=== PATIENT | male | born 1945 | race Caucasian/White ===

== ENCOUNTER 2017-04-17 16:07 | Emergency (ER) | payer OTHER, BC, MEDICARE ==
[2017-04-17 16:29] VITALS: BP 143/81; PULSE 76; RESP 18; TEMP 99
--- NOTE | 2017-04-17 17:20 | XR ---
EXAMINATION TYPE: XR shoulder complete RT, XR humerus RT DATE OF EXAM: 04/17/2017 CLINICAL HISTORY: Pain. Fall injury a couple weeks ago. TECHNIQUE: Three views of the right shoulder are obtained. 2 views of right humerus are acquired. COMPARISON: None. FINDINGS: There is no acute fracture/dislocation evident in the right shoulder. The glenohumeral richardson int spaces appear within normal limits. There is spurring and joint space loss at acromioclavicular joint. The visualized ribs are intact and unremarkable. Images of right humerus show no acute fracture or dislocation. Visualized portion of the elbow joint appears within normal limits. Overlying soft tissue is unremarkable. IMPRESSION: There is no acute fracture or dislocation in the right humerus or shoulder.
--- NOTE | 2017-04-17 17:32 | ED ---
Upper Extremity HPI - General Chief Complaint: Extremity Injury, Upper Stated Complaint: IHS-Fall Time Seen by Provider: 04/17/17 16:48 Source: patient, RN notes reviewed Mode of arrival: ambulatory Limitations: no limitations - History of Present Illness Initial Comments: This is a 71-year-old male who presents to the emergency department with chief complaint of right shoulder injury. Patient states that a couple weeks ago while at work he was squeegeeing the concrete floor. He states he believed the liquid on the floor was water and it turned out to be oil. He slipped, losing his balance and falling backwards. He states he tried to catch his fall by leaning forward and he fell straight down onto his right arm. Patient states he did not hurt his hand, wrist or elbow. He reports that since the incident he has had full range of motion of his shoulder but experiences pain with external rotation of the shoulder and pain is localized to right upper arm. Denies fever, chills, chest pain, shortness of breath, abdominal pain, nausea or vomiting, constipation or diarrhea, dysuria or hematuria, numbness or tingling, headache or vision changes. - Related Data Home Medications Medication Instructions Recorded Confirmed Atorvastatin [Lipitor] 20 mg PO HS 04/17/17 04/17/17 Allergies Allergy/AdvReac Type Severity Reaction Status Date / Time No Known Allergies Allergy Verified 04/17/17 16:52 Review of Systems ROS Statement: Those systems with pertinent positive or pertinent negative responses have been documented in the HPI. ROS Other: All systems not noted in ROS Statement are negative. Past Medical History Past Medical History: Cancer, Hyperlipidemia History of Any Multi-Drug Resistant Organisms: None Reported Past Surgical History: Hernia Repair Past Psychological History: No Psychological Hx Reported Smoking Status: Never smoker Past Alcohol Use History: Occasional Past Drug Use History: None Reported General Exam - General Exam Comments Initial Comments: General: Awake and alert, well-developed; in no apparent distress. HEENT: Head atraumatic, normocephalic. Pupils are equal, round and reactive to light. Extraocular movements intact. Oropharynx moist without erythema or exudate. Neck: Supple. Normal ROM. No tenderness. Cardiovascular: Regular rate and rhythm. No murmurs, rubs or gallops. Chest symmetrical. Respiratory: Lungs clear to auscultation bilaterally. No wheezes, rales or rhonchi. Normal respiratory effort with no use of accessory muscles. Musculoskeletal: Patient has full and active range of motion of right shoulder. Pain is elicited with external rotation of the shoulder, however the pain is felt in right upper arm and not the shoulder itself. Sensation is intact. Radial pulses are 2+ equal and palpable bilaterally. Skin: [place], warm and dry without rashes or lesions. Neurological: Alert and oriented x3. CN II-XII grossly intact. Speech is fluent and answers are appropriate. No focal neuro deficits. Psychiatric: Normal mood and affect. No overt signs of depression or anxiety noted. Limitations: no limitations Course Vital Signs 04/17/17 16:27 Temperature 99 F Pulse Rate 76 Respiratory 18 Rate Blood Pressure 143/81 O2 Sat by Pulse 98 Oximetry Medical Decision Making - Medical Decision Making This is a 71-year-old male who presents to the emergency room department with chief complaint of right shoulder injury. X-rays of right shoulder and humerus revealed no acute abnormalities. Patient likely suffering from muscle strain. He'll be discharged home. Patient is in agreement and voices understanding. All questions were answered. - Radiology Data Radiology results: report reviewed X-ray right shoulder and right humerus findings: There is no acute fracture/ dislocation evident in the right shoulder. The glenohumeral joint spaces appear within normal limits. There is spurring and joint space loss at acromioclavicular joint. Visualized ribs are intact and unremarkable. Images of right humerus show no acute fracture or dislocation. Visualized portion of the elbow joint appears within normal limits. Overlying soft tissue is unremarkable. Impression: There is no acute fracture or dislocation in the right humerus or shoulder. Disposition Clinical Impression: Muscle strain of left upper extremity Disposition: HOME SELF-CARE Condition: Good Instructions: Muscle Strain (ED) Additional Instructions: Please follow up with primary care provider within 1-2 days. Return to emergency department if symptoms should worsen or any concerns arise. Referrals: Abebe Choudhury MD [Primary Care Provider] - 1-2 days Time of Disposition: 17:38
== END 2017-04-17 17:50 | disposition home or self-care (01) ==
LOC: EC 16:07
DX: S46.911A Strain of unspecified muscle, fascia and tendon at shoulder and upper arm level, right arm, initial encounter (principal); E78.5 Hyperlipidemia, unspecified; Z79.899 Other long term (current) drug therapy; W01.0XXA Fall on same level from slipping, tripping and stumbling without subsequent striking against object, initial encounter; Y92.69 Other specified industrial and construction area as the place of occurrence of the external cause; Y99.0 Civilian activity done for income or pay
CPT/HCPCS: 99283

== ENCOUNTER → 2019-05-12 | Outpatient (CLI) | payer BC, MEDICARE ==
--- NOTE | 2019-05-13 11:25 | XR ---
EXAMINATION TYPE: XR chest 2V DATE OF EXAM: 05/12/2019 COMPARISON: None HISTORY: Shortness of breath TECHNIQUE: Frontal and lateral views of the chest are obtained. FINDINGS: Scattered senescent parenchymal changes noted. Hyperinflation compatible with COPD. No evidence for infiltrate. No evidence for atelectasis. Interstitial prominence appears chronic in n ature. Correlate clinically. Heart size is stable. Mediastinal structures are stable and grossly unremarkable. No evidence for hilar prominence. Degenerative changes dorsal spine. IMPRESSION: 1. No evidence for acute pulmonary disease.
== END | disposition home or self-care (01) ==
LOC: RADXRMAIN 17:19
PROVIDERS: ATTEND Internal Medicine
DX: R05 Cough (principal)
CPT/HCPCS: 71046

== ENCOUNTER 2020-05-02 10:32 | Inpatient (IN) | payer BC, MEDICARE ==
[2020-05-02] MEDS ORDERED: ACETAMINOPHEN TAB 500 MG TAB PO STA (10:51)
[2020-05-02] MEDS ORDERED: SODIUM CHLORIDE 0.9% 1,000 ML IV ONE (10:53)
--- NOTE | 2020-05-02 10:55 | ED ---
General Adult HPI - General Chief complaint: Shortness of Breath Stated complaint: YANET Time Seen by Provider: 05/02/20 10:43 Source: patient, RN notes reviewed Mode of arrival: EMS Limitations: no limitations - History of Present Illness Initial comments: This a 74-year-old male presents emergency Department with chief complaint of shortness of breath. Patient states he has not felt well over the last several days. Patient states he went to [facility] today to evaluated and found to be hypoxic. Patient had a pulse ox in the high 80s, low 90s. Patient states that he feels like he has slight congestion. He states he coughed there is no production. Denies any leg pain, leg swelling no prior cardiac or lung disease. Patient states he did not know he had a fever until today. Patient denies any known sick contacts. He has slight nasal congestion. Denies current dizziness, lightheaded feeling. - Related Data Home Medications Medication Instructions Recorded Confirmed No Known Home Medications 05/02/20 05/02/20 Allergies Allergy/AdvReac Type Severity Reaction Status Date / Time No Known Allergies Allergy Verified 05/02/20 11:35 Review of Systems ROS Statement: Those systems with pertinent positive or pertinent negative responses have been documented in the HPI. ROS Other: All systems not noted in ROS Statement are negative. Past Medical History Past Medical History: No Reported History History of Any Multi-Drug Resistant Organisms: None Reported Past Surgical History: Hernia Repair Past Psychological History: No Psychological Hx Reported Smoking Status: Never smoker Past Alcohol Use History: Occasional Past Drug Use History: None Reported General Exam Limitations: no limitations General appearance: alert, in no apparent distress Head exam: Present: atraumatic, normocephalic, normal inspection Eye exam: Present: normal appearance, PERRL, EOMI. Absent: scleral icterus, con junctival injection, periorbital swelling ENT exam: Present: normal exam, normal oropharynx, mucous membranes moist Neck exam: Present: normal inspection, full ROM. Absent: tenderness, meningismus, lymphadenopathy Respiratory exam: Present: respiratory distress (Mild), decreased breath sounds. Absent: normal lung sounds bilaterally, wheezes, rales, rhonchi, stridor Cardiovascular Exam: Present: regular rate, normal rhythm, normal heart sounds. Absent: systolic murmur, diastolic murmur, rubs, gallop, clicks GI/Abdominal exam: Present: soft, normal bowel sounds. Absent: distended, tenderness, guarding, rebound, rigid Extremities exam: Absent: pedal edema, calf tenderness Neurological exam: Present: alert, oriented X3, CN II-XII intact Course Vital Signs 05/02/20 05/02/20 05/02/20 10:45 11:53 12:55 Temperature 100.1 F H 99.2 F Pulse Rate 93 87 77 Respiratory 26 H 26 H 22 Rate Blood Pressure 153/92 153/92 135/88 O2 Sat by Pulse 92 L 98 96 Oximetry EKG Findings - EKG Comments: EKG Findings:: EKG performed at 11:13 normal sinus rhythm rate of 86 NH 140 QRS 86 QT/QTC 368/440 Medical Decision Making - Medical Decision Making X-ray shows mild infiltrates noted, patient was hypoxic upon arrival patient did have some improvement after oxygen. Patient d-dimer was elevated CT was performed no evidence of PE. Patient is discussed with admitting physician accepts admission patient was given dexamethasone, vitamin C, zinc, vitamin D - Lab Data Result diagrams: 05/02/20 11:32 05/02/20 11:32 Lab Results 05/02/20 05/02/20 05/02/20 Range/Units 11:32 11:32 11:32 WBC 7.9 (3.8-10.6) k/uL RBC 5.62 (4.30-5.90) m/uL Hgb 18.1 H (13.0-17.5) gm/dL Hct 52.0 (39.0-53.0) % MCV 92.6 (80.0-100.0) fL MCH 32.2 (25.0-35.0) pg MCHC 34.7 (31.0-37.0) g/dL RDW 12.3 (11.5-15.5) % Plt Count 185 (150-450) k/uL MPV 8.2 Neutrophils % 79 % Lymphocytes % 11 % Monocytes % 6 % Eosinophils % 0 % Basophils % 3 % Neutrophils # 6.2 (1.3-7.7) k/uL Lymphocytes # 0.9 L (1.0-4.8) k/uL Monocytes # 0.5 (0-1.0) k/uL Eosinophils # 0.0 (0-0.7) k/uL Basophils # 0.2 (0-0.2) k/uL PT 10.2 (9.0-12.0) sec INR 1.0 (<1.2) APTT 25.7 (22.0-30.0) sec D-Dimer 1.59 H (<0.60) mg/L FEU Sodium 136 L (137-145) mmol/L Potassium 4.3 (3.5-5.1) mmol/L Chloride 101 (98-107) mmol/L Carbon Dioxide 24 (22-30) mmol/L Anion Gap 11 mmol/L BUN 17 (9-20) mg/dL Creatinine 1.18 (0.66-1.25) mg/dL Est GFR (CKD-EPI)AfAm 70 (>60 ml/min/1.73 sqM) Est GFR (CKD-EPI)NonAf 61 (>60 ml/min/1.73 sqM) Glucose 116 H (74-99) mg/dL Plasma Lactic Acid Srinivas (0.7-2.0) mmol/L Calcium 9.1 (8.4-10.2) mg/dL Magnesium 2.3 (1.6-2.3) mg/dL Total Bilirubin 0.9 (0.2-1.3) mg/dL AST 59 (17-59) U/L ALT 29 (4-49) U/L Alkaline Phosphatase 79 (38-126) U/L Lactate Dehydrogenase 1301 H (313-618) U/L C-Reactive Protein 24.6 H (<10.0) mg/L Total Protein 8.1 (6.3-8.2) g/dL Albumin 4.3 (3.5-5.0) g/dL Coronavirus (PCR) (Not Detectd) 05/02/20 05/02/20 Range/Units 11:32 11:53 WBC (3.8-10.6) k/uL RBC (4.30-5.90) m/uL Hgb (13.0-17.5) gm/dL Hct (39.0-53.0) % MCV (80.0-100.0) fL MCH (25.0-35.0) pg MCHC (31.0-37.0) g/dL RDW (11.5-15.5) % Plt Count (150-450) k/uL MPV Neutrophils % % Lymphocytes % % Monocytes % % Eosinophils % % Basophils % % Neutrophils # (1.3-7.7) k/uL Lymphocytes # (1.0-4.8) k/uL Monocytes # (0-1.0) k/uL Eosinophils # (0-0.7) k/uL Basophils # (0-0.2) k/uL PT (9.0-12.0) sec INR (<1.2) APTT (22.0-30.0) sec D-Dimer (<0.60) mg/L FEU Sodium (137-145) mmol/L Potassium (3.5-5.1) mmol/L Chloride (98-107) mmol/L Carbon Dioxide (22-30) mmol/L Anion Gap mmol/L BUN (9-20) mg/dL Creatinine (0.66-1.25) mg/dL Est GFR (CKD-EPI)AfAm (>60 ml/min/1.73 sqM) Est GFR (CKD-EPI)NonAf (>60 ml/min/1.73 sqM) Glucose (74-99) mg/dL Plasma Lactic Acid Srinivas 1.3 (0.7-2.0) mmol/L Calcium (8.4-10.2) mg/dL Magnesium (1.6-2.3) mg/dL Total Bilirubin (0.2-1.3) mg/dL AST (17-59) U/L ALT (4-49) U/L Alkaline Phosphatase (38-126) U/L Lactate Dehydrogenase (313-618) U/L C-Reactive Protein (<10.0) mg/L Total Protein (6.3-8.2) g/dL Albumin (3.5-5.0) g/dL Coronavirus (PCR) Detected A (Not Detectd) Disposition Clinical Impression: COVID-19 Disposition: ADMITTED IP TO THIS HOSP Condition: Fair Referrals: Sheryl Pinedo MD [Primary Care Provider] - 1-2 days
[2020-05-02 11:46] LABS: Basophils # (A) 0.2 k/uL (0-0.2); Basophils % (A) 3 %; Eosinophils % (A) 0 %; HGB 18.1 gm/dL (13.0-17.5); Lymphocytes # (A) 0.9 k/uL (1.0-4.8); Lymphocytes % (A) 11 %; MCH 32.2 pg (25.0-35.0); MCHC 34.7 g/dL (31.0-37.0); MCV 92.6 fL (80.0-100.0); Mean Platelet Volume 8.2; Monocytes # (A) 0.5 k/uL (0-1.0); Monocytes % (A) 6 %; Neutrophils # (A) 6.2 k/uL (1.3-7.7); Neutrophils % (A) 79 %; Platelet Count 185 k/uL (150-450); RBC 5.62 m/uL (4.30-5.90); RDW 12.3 % (11.5-15.5); WBC 7.9 k/uL (3.8-10.6)
--- NOTE | 2020-05-02 11:53 | XR ---
EXAMINATION TYPE: XR chest 2V DATE OF EXAM: 05/02/2020 COMPARISON: 05/12/2019 HISTORY: 74-year-old male with cough TECHNIQUE: PA and lateral views FINDINGS: Heart normal size. Aortopulmonary vasculature within normal limits. Mild hyperinflation. Findings med ium interstitial opacities in the periphery of the lungs and at the lung bases, increased from prior. No pleural effusion. IMPRESSION: Possible background of COPD. Interstitial infiltrates/opacities have increased from 2019. Underlying interstitial fibrosis and possible superimposed atypical/COVID pneumonia are considerations.
[2020-05-02 11:54] LABS: Albumin 4.3 g/dL (3.5-5.0); Calcium 9.1 mg/dL (8.4-10.2); Magnesium 2.3 mg/dL (1.6-2.3); Potassium 4.3 mmol/L (3.5-5.1); Total Bilirubin 0.9 mg/dL (0.2-1.3); Total Protein 8.1 g/dL (6.3-8.2)
[2020-05-02 11:58] LABS: C Reactive Protein 24.6 mg/L (<10.0)
[2020-05-02 12:21] LABS: Prothrombin Time 10.2 sec (9.0-12.0)
[2020-05-02 12:22] LABS: Partial Thromboplastin Time 25.7 sec (22.0-30.0)
[2020-05-02 12:24] LABS: D-Dimer 1.59 mg/L FEU (<0.60)
[2020-05-02] MEDS ORDERED: dexAMETHasone 2 MG TAB PO STA (13:06)
--- NOTE | 2020-05-02 13:08 | CT ---
CT CHEST FOR PULMONARY EMBOLISM. EXAMINATION TYPE: CT chest angio for PE DATE OF EXAM: 05/02/2020 INDICATION: Shortness of breath. CT DLP: 450.6 mGycm, Automated exposure control for dose reduction was used. CONTRAST: Patient injected with 100 mL of Isovue 370. COMPARISON: None TECHNIQUE: CT of the chest is performed on a spiral scan at 2 mm thick sections. Study is performed with intravenous contrast timed for evaluation for pulmonary embolism. This will limit additional po rtions of the evaluation. 3-D MIP images reconstructed by the technologist are reviewed on the compu ter in the coronal and sagittal planes. FINDINGS: No persistent filling defects are evident to suggest an acute pulmonary embolism. No mediastinal or hilar adenopathy enlarged by CT criteria is evident. The ascending aorta diameter at the level of the main pulmonary artery is 2.4 cm. The main pulmonary artery diameter at the bifur cation is 3.1 cm. There is extensive emphysematous changes through the lungs greater on the right. Some scattered nonsp ecific infiltrate may be present within the lung bases. Findings overall appear suggestive for pulmon lauren fibrosis Limited CT section through the upper abdomen are unremarkable. IMPRESSIONS: 1. Extensive emphysematous changes. 2. Changes suggestive for pulmonary fibrosis. Mild infiltrate is not entirely excluded and atelectasi s or infectious etiologies could be considered. 3. No suspicious changes to suggest acute pulmonary embolism
[2020-05-02] MEDS ORDERED: ACETAMINOPHEN TAB 500 MG TAB PO PRN (13:36)
[2020-05-02] MEDS ORDERED: ALBUTEROL HFA INHALER INHALATION PRN (13:36)
--- NOTE | 2020-05-02 16:38 | P.HPIM ---
History of Present Illness H&P Date: 05/02/20 Patient is a 74-year-old male with no known PMH presented to the emergency room with complaints of subjective fevers, cough, and lethargy. Patient reports that his symptoms started Saturday of last week and gradually progressed. He attempted to make an appointment to see his primary care physician who was not available. The patient was referred to [facility] where he was found to be hypoxic in the high 80s to low 90s and was sent to the emergency room. At time of evaluation, the patient reports feeling somewhat better. He denied chest discomfort, overt shortness of breath, nausea, vomiting, abdominal pain, diarrhea, or dizziness. Also denied lower extremity swelling or pain. Patient underwent an extensive evaluation in the emergency room with vital signs upon presentation T-max of 100.1, respiratory rate 26, SpO2 92% on room air, and BP 153/92. Laboratory evaluation revealed CRP of 24.6, LDH 1301, d-dimer 1.59, and coronavirus testing positive. Chest CTA revealed extensive emphysematous changes suggestive of pulmonary fibrosis with infectious etiology not excluded with no changes to suggest PE. EKG revealed normal sinus rhythm at 86 bpm with no acute ST/T-wave changes noted as reviewed by me. Review of Systems Pertinent positives and negatives as discussed in HPI, a complete review of systems was performed and all other systems are negative. Past Medical History Past Medical History: No Reported History History of Any Multi-Drug Resistant Organisms: None Reported Past Surgical History: Hernia Repair Past Psychological History: No Psychological Hx Reported Smoking Status: Never smoker Past Alcohol Use History: Occasional Past Drug Use History: None Reported - Past Family History Father Additional Family Medical History / Comment(s): Father from diptheria treatment Mother Family Medical History: Cancer Additional Family Medical History / Comment(s): Pt cannot recall type of cancer. Medications and Allergies Home Medications Medication Instructions Recorded Confirmed Type No Known Home Medications 05/02/20 05/02/20 History Allergies Allergy/AdvReac Type Severity Reaction Status Date / Time No Known Allergies Allergy Verified 05/02/20 11:35 Physical Exam Vitals: Vital Signs Temp Pulse Resp BP Pulse Ox 05/02/20 12:55 99.2 F 77 22 135/88 96 05/02/20 11:53 87 26 H 153/92 98 05/02/20 10:45 100.1 F H 93 26 H 153/92 92 L Intake and Output 05/01/20 05/02/20 05/02/20 22:59 06:59 14:59 Other: Weight 99.79 kg General: non toxic, no distress, appears at stated age, obese Derm: no unusual rashes/lesions no unusual ecchymoses, warm, dry Head: atraumatic, normocephalic, symmetric Eyes: EOMI, no lid lag, anicteric sclera, pupils equal round reactive to light ENT: Nose and ears atraumatic, no thrush, no pharyngeal erythema Neck: No thyromegaly, no cervical lymphadenopathy, trachea midline, supple Mouth: no lip lesion, mucus membranes moist Cardiovascular: S1S2 reg, no murmur, positive posterior tibial pulse bilateral, no edema, capillary refill less than 2 seconds Lungs: Scattered rhonchi, no rales or wheezing, no accessory muscle use Abdominal: soft, nontender to palpation, no guarding, no appreciable o rganomegaly, normal bowel sounds Ext: no gross muscle atrophy, muscle strength 4 out of 5 in all 4 extremities grossly, no contractures, Neuro: CN II-XI grossly intact, light touch intact all 4 extremities, finger to nose within normal limits, Psych: Alert, oriented, appropriate affect Results CBC & Chem 7: 05/02/20 11:32 05/02/20 11:32 Labs: Abnormal Lab Results - Last 24 Hours (Table) 05/02/20 05/02/20 05/02/20 Range/Units 11:32 11:32 11:32 Hgb 18.1 H (13.0-17.5) gm/dL Lymphocytes # 0.9 L (1.0-4.8) k/uL D-Dimer 1.59 H (<0.60) mg/L FEU Sodium 136 L (137-145) mmol/L Glucose 116 H (74-99) mg/dL Lactate Dehydrogenase 1301 H (313-618) U/L C-Reactive Protein 24.6 H (<10.0) mg/L Coronavirus (PCR) (Not Detectd) 05/02/20 Range/Units 11:53 Hgb (13.0-17.5) gm/dL Lymphocytes # (1.0-4.8) k/uL D-Dimer (<0.60) mg/L FEU Sodium (137-145) mmol/L Glucose (74-99) mg/dL Lactate Dehydrogenase (313-618) U/L C-Reactive Protein (<10.0) mg/L Coronavirus (PCR) Detected A (Not Detectd) Assessment and Plan Plan: COVID pneumonitis with acute hypoxic respiratory failure -Obtain ferritin, CPK, troponin, and proBNP levels -Check inflammatory markers daily -Start dexamethasone, vitamin C, vitamin D, zinc, melatonin -Pulmonary consult for possible Remdesivir -Supplemental oxygen -Isolation precautions -Check procalcitonin DVT prophylaxis -Lovenox The patient is admitted with an anticipated greater than 2 midnight stay for evaluation of COVID pneumonia CODE STATUS: Full Code Discussed with: Patient Anticipated discharge date: 3-[address]: Home A total of 40 minutes was spent on the care of this complex patient more than 50% of the time was spent in counseling and care coordination.
[2020-05-02 19:52] LABS: Ferritin 1867.4 ng/mL (22.0-322.0)
[2020-05-03] MEDS: ZINC SULFATE 220 MG CAP PO SCH (08:00)
[2020-05-03] MEDS: CHOLECALCIFEROL 400 UNIT TAB PO SCH (08:00)
[2020-05-03] MEDS: dexAMETHasone 2 MG TAB PO SCH (08:01)
[2020-05-03 08:08] LABS: Basophils % (A) 0 %; Eosinophils % (A) 0 %; HCT 48.7 % (39.0-53.0); HGB 15.8 gm/dL (13.0-17.5); Lymphocytes # (A) 1.2 k/uL (1.0-4.8); Lymphocytes % (A) 11 %; MCH 30.6 pg (25.0-35.0); MCHC 32.4 g/dL (31.0-37.0); MCV 94.6 fL (80.0-100.0); Mean Platelet Volume 8.3; Monocytes # (A) 0.4 k/uL (0-1.0); Monocytes % (A) 4 %; Neutrophils # (A) 8.7 k/uL (1.3-7.7); Neutrophils % (A) 84 %; Platelet Count 215 k/uL (150-450); RBC 5.15 m/uL (4.30-5.90); WBC 10.3 k/uL (3.8-10.6)
[2020-05-03] MEDS ORDERED: ASCORBIC ACID 500 MG TAB PO SCH (09:00)
--- NOTE | 2020-05-03 11:09 | P.DS ---
Providers Date of admission: 05/02/20 13:35 Expected date of discharge: 05/03/20 Attending physician: Lynette Benson MD Consults: 05/02/20 16:38 Consult Physician Urgent Consulting Provider: Joby Hayden Consult Reason/Comments: COVID Do you want consulting provider notified?: Yes Primary care physician: Sheryl Pinedo MD Hospital Course: Discharge Diagnosis: COVID-19 Acute hypoxic respiratory failure Arthritis Hospital Course: Patient is a 74-year-old male with no known past medical history who presented initially to Dr. Mcgarry's office with complaints of chills for 5 days. [facility] including a rapid Covid which was negative. He was sent here due to hypoxia. On arrival to the ER here he was noted to have a fever of 100.1, respiratory rate of 26, and room air pulse ox 92%. He was noted to have an elevated d-dimer and subsequently underwent a CT of the chest which was negative for pulmonary embolism but demonstrated emphysematous changes and possible pulmonary fibrosis. He tested positive for Covid 19. He was noted to have a mildly elevated CRP and LDH. He was started on dexamethasone, zinc, and vitamin C/D. He was admitted for further monitoring. On the morning of 05/03 he was noted to have an O2 sat of 93% on 2 L nasal cannula, he had been satting 98% on 2 L nasal cannula the night prior. Requesting to be discharged. He was insistent that he needed to go home and we were not doing anything for him. He was subsequently discharged home at his request, and against the advice of the physician with 9 additional days of dexamethasone, zinc, vitamin C, vitamin D, and aspirin. He should follow-up with a [facility] visit with Dr. Pinedo in 3-5 days. He was given instructions to return to the emergency department should his breathing worsen. He will have a home O2 evaluation prior to discharge. Patient discharge in less than 2 midnights at patients request. Patient seen and examined at bedside. He is requesting to be discharged as I entered the room. He states he is fine and does not know why he is here. We had along discussion about his course of illness and his want to go home. I explained that I recommened that he stay for anohter 24 hours as he is percent of oxygen had decreased on his 2 L and that he was having some conversational dyspnea along with sternal retractions. He was again to go home that he wanted to go home and has stuff to do. Our conversation quickly deteriorated and the patient became very upset, hostile, and derogatory. He was told his request to be discharged home with be granted. But that I am very worried that he will come back to the hospital and do worse. Vital signs reviewed and stable. General: non toxic, no distress, appears at stated age Derm: warm, dry Head: atraumatic, normocephalic, symmetric Lungs: 3 word coversational dyspena, + sternal retractions. Neuro: CN II-XI grossly intact, Moving all 4 extremities Psych: Alert, oriented, agitated A total of 35 minutes of time were spent preparing this complex discharge summary . Patient Condition at Discharge: Fair Plan - Discharge Summary Discharge Rx Participant: No New Discharge Prescriptions: New Aspirin [Adult Low Dose Aspirin EC] 81 mg PO DAILY #14 tablet. dexAMETHasone [Hexadrol] 6 mg PO DAILY #27 tab Zinc Sulfate [Orazinc] 220 mg PO DAILY #14 cap Albuterol Inhaler [Ventolin Hfa Inhaler] 2 puff INHALATION RT-Q6H PRN #1 inhaler PRN Reason: Shortness Of Breath Or Wheezing Cholecalciferol [Vitamin D3] 400 unit PO DAILY #14 tab Famotidine [Pepcid] 40 mg PO HS #14 tab Discharge Medication List Albuterol Inhaler [Ventolin Hfa Inhaler] 2 puff INHALATION RT-Q6H PRN #1 inhaler 05/03/20 [Rx] Aspirin [Adult Low Dose Aspirin EC] 81 mg PO DAILY #14 tablet. 05/03/20 [Rx] Cholecalciferol [Vitamin D3] 400 unit PO DAILY #14 tab 05/03/20 [Rx] Famotidine [Pepcid] 40 mg PO HS #14 tab 05/03/20 [Rx] Zinc Sulfate [Orazinc] 220 mg PO DAILY #14 cap 05/03/20 [Rx] dexAMETHasone [Hexadrol] 6 mg PO DAILY #27 tab 05/03/20 [Rx] Follow up Appointment(s)/Referral(s): Sheryl Pinedo MD [Primary Care Provider] - 1-2 days Activity/Diet/Wound Care/Special Instructions: Activity: [] Diet: [] Wound Care: [] Special Instructions: Obtain a pulse ox and monitor oxygen levels if less than 90% you need to come to back to the hospital if your breathing worsens. You have been discharged at your request, the physician had wanted to keep you for further monitoring Discharge Disposition: HOME SELF-CARE
[2020-05-03] MEDS: ENOXAPARIN 40 MG/0.4 ML SYRINGE SQ SCH (11:12)
[2020-05-03 11:47] LABS: African American GFR (CKD) 86.2 (60.0-200.0); Anion Gap 11.2 mmol/L (4.00-12.00); C Reactive Protein 2.4 mg/dL (0.0-0.8); Calcium 8.7 mg/dL (8.7-10.3); Carbon Dioxide 21.8 mmol/L (21.6-31.8); Non-African American GFR(CKD) 74.3 (60.0-200.0); Potassium 4.2 mmol/L (3.5-5.5)
[2020-05-03] MEDS: FAMOTIDINE 20 MG TAB PO SCH (12:15)
--- NOTE | 2020-05-03 16:30 | P.CNPUL ---
History of Present Illness Consult date: 05/03/20 Requesting physician: Ella Rubio Reason for consult: dyspnea Chief complaint: Dyspnea, fatigue, cough History of present illness: 74-year-old white male patient of Dr. Choudhury, with history of COPD, previous history of smoking, in remission for last 47 years, osteoarthritis, hernia repair surgery, who presented to the emergency department on 05/02/2020 for evaluation of shortness of breath, fatigue, cough. Patient has not felt well for several days, he went to see Dr. Choudhury, however she could not be seen in the office, and she was sent over to the urgent care clinic formerly [facility] and he was found to be hypoxic with a pulse ox in the mid 80s, his lungs were slightly congested, he is coughing and his cough was nonproductive. He was tested for COVID at the [facility] and he stated that his test was negative there. In view of his hypoxia patient was directed to the emergency department for further evaluation and treatment, chest x-ray was completed showing mild infiltrates, his Coumadin 19 PCR was retested and he came back positive. He was lymphopenic on his blood work, with lymphocyte count of 0.9, white blood cell, 7.9, d-dimer was elevated to 1.59, CTA chest was completed showing extensive emphysematous changes, changes suggestive of pulmonary fibrosis, mild infiltrate not entirely excluded with atelectasis or infectious etiology consideration, no suspicious changes to suggest pulmonary embolism. Patient was febrile presentation with a temp of 100.1F, patient is satting 86% on room air, he is requiring supplemental oxygen currently on 2 L of oxygen with a pulse ox of 96%, he is short of breath with exertion, blood pressure has been stable, he was started on oral Decadron, Pepcid, vitamin C, zinc supplement, he states his breathing is improving, he still has a cough now and then, but overall he states he is improving, follow blood work was obtained today, showing d-dimer slightly improved and down to 1.14, electrolytes and renal profile were unremarkable, his inflammatory markers are trending down, LDH is down to 479 from 1301, and CRP is down to 2.4 from 24.6 on admission. ProCalcitonin level was negative at 0.06. Review of Systems All systems: negative Constitutional: Denies chills, Denies fever Eyes: denies blurred vision, denies pain Ears, nose, mouth and throat: Denies headache, Denies sore throat Cardiovascular: Denies chest pain, Denies shortness of breath Respiratory: Reports dyspnea, Denies cough Gastrointestinal: Denies abdominal pain, Denies diarrhea, Denies nausea, Denies vomiting Musculoskeletal: Denies myalgias Integumentary: Denies pruritus, Denies rash Neurological: Denies numbness, Denies weakness Psychiatric: Denies anxiety, Denies depression Endocrine: Denies fatigue, Denies weight change Past Medical History Past Medical History: No Reported History Additional Past Medical History / Comment(s): Arthritis bilateral hands History of Any Multi-Drug Resistant Organisms: None Reported Past Surgical History: Hernia Repair Additional Past Surgical History / Comment(s): L inguinal hernia repair. Past Anesthesia/Blood Transfusion Reactions: No Reported Reaction Past Psychological History: No Psychological Hx Reported Smoking Status: Never smoker Past Alcohol Use History: Occasional Past Drug Use History: None Reported - Past Family History Father Additional Family Medical History / Comment(s): Father from diptheria treatment Mother Family Medical History: Cancer Additional Family Medical History / Comment(s): Pt cannot recall type of cancer. Medications and Allergies Home Medications Medication Instructions Recorded Confirmed Type Albuterol Inhaler [Ventolin Hfa 2 puff INHALATION RT-Q6H PRN #1 05/03/20 Rx Inhaler] inhaler Aspirin [Adult Low Dose Aspirin EC] 81 mg PO DAILY #14 tablet. 05/03/20 Rx Cholecalciferol [Vitamin D3] 400 unit PO DAILY #14 tab 05/03/20 Rx Famotidine [Pepcid] 40 mg PO HS #14 tab 05/03/20 Rx Zinc Sulfate [Orazinc] 220 mg PO DAILY #14 cap 05/03/20 Rx dexAMETHasone [Hexadrol] 6 mg PO DAILY #27 tab 05/03/20 Rx Allergies Allergy/AdvReac Type Severity Reaction Status Date / Time No Known Allergies Allergy Verified 05/02/20 11:35 Physical Exam Vitals: Vital Signs Temp Pulse Pulse Pulse Pulse Pulse Resp 05/03/20 11:41 97.4 F L 88 84 86 79 84 18 05/03/20 11:00 05/03/20 07:44 98.2 F 84 17 05/03/20 02:00 97.9 F 81 20 05/02/20 20:00 98.0 F 79 18 BP Pulse Ox Pulse Ox Pulse Ox Pulse Ox Pulse Ox 05/03/20 11:41 126/78 96 93 L 94 L 94 L 86 L 05/03/20 11:00 96 05/03/20 07:44 137/88 93 L 05/03/20 02:00 115/73 92 L 05/02/20 20:00 138/75 96 Intake and Output 05/03/20 05/03/20 05/03/20 06:59 14:59 22:59 Intake Total 500 Balance 500 Intake: Oral 500 Other: # Voids 2 GENERAL EXAM: Alert, very pleasant 74-year-old white male on 2 L of oxygen the pulse ox 96% comfortable in no apparent distress. HEAD: Normocephalic/atraumatic. EYES: Normal reaction of pupils, equal size. Conjunctiva pink, sclera white. NOSE: Clear with pink turbinates. THROAT: No erythema or exudates. NECK: No masses, no JVD, no thyroid enlargement, no adenopathy. CHEST: No chest wall deformity. Symmetrical expansion. LUNGS: Equal air entry with scattered rhonchi CVS: Regular rate and rhythm, normal S1 and S2, no gallops, no murmurs, no rubs ABDOMEN: Soft, nontender. No hepatosplenomegaly, normal bowel sounds, no guarding or rigidity. EXTREMITIES: No clubbing, no edema, no cyanosis, 2+ pulses and upper and lower extremities. MUSCULOSKELETAL: Muscle strength and tone normal. SPINE: No scoliosis or deformity SKIN: No rashes CENTRAL NERVOUS SYSTEM: Alert and oriented -3. No focal deficits, tone is normal in all 4 extremities. PSYCHIATRIC: Alert and oriented -3. Appropriate affect. Intact judgment and insight. Results - Laboratory Findings CBC and BMP: 05/03/20 06:59 05/03/20 06:59 PT/INR, D-dimer PT 10.2 sec (9.0-12.0) 05/02/20 11:32 INR 1.0 (<1.2) 05/02/20 11:32 D-Dimer 1.14 mg/L FEU (<0.60) H 05/03/20 06:59 Abnormal lab findings: Abnormal Labs 05/02/20 05/02/20 05/02/20 11:32 11:32 11:32 Hgb 18.1 H Neutrophils # Lymphocytes # 0.9 L D-Dimer 1.59 H Sodium 136 L Glucose 116 H Ferritin 1867.4 H Lactate Dehydrogenase 1301 H C-Reactive Protein 24.6 H Coronavirus (PCR) 05/02/20 05/03/20 05/03/20 11:53 06:59 06:59 Hgb Neutrophils # 8.7 H Lymphocytes # D-Dimer 1.14 H Sodium Glucose Ferritin Lactate Dehydrogenase C-Reactive Protein Coronavirus (PCR) Detected A 05/03/20 06:59 Hgb Neutrophils # Lymphocytes # D-Dimer Sodium Glucose 130 H Ferritin Lactate Dehydrogenase 479 H C-Reactive Protein 2.4 H Coronavirus (PCR) - Diagnostic Findings Chest x-ray: report reviewed, image reviewed CT scan - chest: report reviewed, image reviewed Assessment and Plan Plan: Assessment: #1. Acute hypoxic respiratory failure related to acute coronary 19 related pn [place] #2. Acute exacerbation of chronic obstructive pulmonary disease #3. Increased inflammatory markers, and increased d-dimer without evidence of pulmonary embolism on the CTA chest related to acute COVID 19 related pneumonia #4. Extensive emphysematous changes throughout the lungs greater on the right, and findings overall appearing suggestive of pulmonary fibrosis #5. Former smoker, in remission for 47 years, does carry 23 years of smoking history Plan: Continue current medical treatment, continue oral Decadron, continue Lovenox at prophylactic dose, vital signs stable, patient is feeling better, although still requiring supplemental oxygen, continue with conservative treatment. Continue to monitor. If continues to improve in next 24 hours, may consider discharge home I performed a history & physical examination of the patient and discussed their management with my nurse practitioner, Celina Laboy. I reviewed the nurse practitioner's note and agree with the documented findings and plan of care. Lung sounds are positive for diminished breath sounds. The findings and the impression was discussed with the patient. I attest to the documentation by the nurse practitioner. Time with Patient: Greater than 30
[2020-05-03] MEDS ORDERED: MELATONIN 5 MG TABLET PO SCH (21:00)
[2020-05-04 06:47] LABS: Basophils # (A) 0.2 k/uL (0-0.2); Basophils % (A) 1 %; Eosinophils % (A) 0 %; HCT 49.2 % (39.0-53.0); HGB 16.3 gm/dL (13.0-17.5); Lymphocytes % (A) 7 %; MCH 32.3 pg (25.0-35.0); MCV 97.9 fL (80.0-100.0); Mean Platelet Volume 8.2; Monocytes # (A) 0.6 k/uL (0-1.0); Monocytes % (A) 4 %; Neutrophils # (A) 12.7 k/uL (1.3-7.7); Neutrophils % (A) 87 %; Platelet Count 228 k/uL (150-450); RBC 5.03 m/uL (4.30-5.90); RDW 12.6 % (11.5-15.5); WBC 14.5 k/uL (3.8-10.6)
[2020-05-04 08:18] VITALS: BP 143/84; RESP 18; TEMP 98.5
[2020-05-04] MEDS ORDERED: ASCORBIC ACID 500 MG TAB PO SCH (09:00)
[2020-05-04] MEDS: FAMOTIDINE 20 MG TAB PO SCH (09:32)
[2020-05-04] MEDS: ZINC SULFATE 220 MG CAP PO SCH (09:33)
[2020-05-04] MEDS: ENOXAPARIN 40 MG/0.4 ML SYRINGE SQ SCH (09:33)
[2020-05-04] MEDS: dexAMETHasone 2 MG TAB PO SCH (09:33)
[2020-05-04] MEDS: CHOLECALCIFEROL 400 UNIT TAB PO SCH (09:34)
[2020-05-04 10:38] VITALS: PULSE 2
[2020-05-04 10:56] LABS: African American GFR (CKD) 86.2 (60.0-200.0); C Reactive Protein 1.9 mg/dL (0.0-0.8); Calcium 8.8 mg/dL (8.7-10.3); Non-African American GFR(CKD) 74.3 (60.0-200.0)
--- NOTE | 2020-05-04 14:28 | P.PN ---
Subjective Progress Note Date: 05/04/20 Principal diagnosis: Acute hypoxic respiratory failure secondary to acute CoVID 19 pneumonia 74-year-old white male patient of Dr. Choudhury, with history of COPD, previous history of smoking, in remission for last 47 years, osteoarthritis, hernia repair surgery, who presented to the emergency department on 05/02/2020 for evaluation of shortness of breath, fatigue, cough. Patient has not felt well for several days, he went to see Dr. Chouhdury, however she could not be seen in the office, and she was sent over to the urgent care clinic [facility] and he was found to be hypoxic with a pulse ox in the mid 80s, his lungs were slightly congested, he is coughing and his cough was nonproductive. He was tested for COVID at the [facility] and he stated that his test was negative there. In view of his hypoxia patient was directed to the emergency department for further evaluation and treatment, chest x-ray was completed showing mild infiltrates, his Coumadin 19 PCR was retested and he came back positive. He was lymphopenic on his blood work, with lymphocyte count of 0.9, white blood cell, 7.9, d-dimer was elevated to 1.59, CTA chest was completed showing extensive emphysematous changes, changes suggestive of pulmonary fibrosis, mild infiltrate not entirely excluded with atelectasis or infectious etiology consideration, no suspicious changes to suggest pulmonary embolism. Patient was febrile presentation with a temp of 100.1F, patient is satting 86% on room air, he is requiring supplemental oxygen currently on 2 L of oxygen with a pulse ox of 96%, he is short of breath with exertion, blood pressure has been stable, he was started on oral Decadron, Pepcid, vitamin C, zinc supplement, he states his breathing is improving, he still has a cough now and then, but overall he states he is improving, follow blood work was obtained today, showing d-dimer slightly i mproved and down to 1.14, electrolytes and renal profile were unremarkable, his inflammatory markers are trending down, LDH is down to 479 from 1301, and CRP is down to 2.4 from 24.6 on admission. ProCalcitonin level was negative at 0.06. The patient is seen today 05/04/2020 in follow-up on the regular medical floor. He is awake and alert in no acute distress. Feeling back to his baseline. He is anxious to go home. He did receive Decadron and Lovenox. He remains on vitamin C, vitamin D, zinc, Pepcid, melatonin. Blood cultures reveal no growth. White count 14.5. Hemoglobin 16.3. D-dimer 0.88. Sodium 137. Potassium 4.0. Creatinine 1.0. LDH 505. C-reactive protein 1.9. Objective - Vital Signs Vital signs: Vital Signs Temp 98.5 F 05/04/20 08:00 Pulse 2 L 05/04/20 10:36 Resp 18 05/04/20 08:00 BP 143/84 05/04/20 08:00 Pulse Ox 89 L 05/04/20 10:36 Intake & Output 05/03/20 05/04/20 05/04/20 18:59 06:59 18:59 Intake Total 500 Balance 500 Intake: Oral 500 Other: Voiding Method Toilet Toilet # Voids 2 # Bowel Movements 1 - Exam GENERAL EXAM: Alert, very pleasant 74-year-old gentleman, on room air, comfortab le in no apparent distress. HEAD: Normocephalic. EYES: Normal reaction of pupils, equal size. NOSE: Clear with pink turbinates. THROAT: No erythema or exudates. NECK: No masses, no JVD. CHEST: No chest wall deformity. LUNGS: Equal air entry with no crackles, wheeze, rhonchi or dullness. CVS: S1 and S2 normal with no audible murmur, regular rhythm. ABDOMEN: No hepatosplenomegaly, normal bowel sounds, no guarding or rigidity. SPINE: No scoliosis or deformity SKIN: No rashes CENTRAL NERVOUS SYSTEM: No focal deficits, tone is normal in all 4 extremities. EXTREMITIES: There is no peripheral edema. No clubbing, no cyanosis. Peripheral pulses are intact. - Labs CBC & Chem 7: 05/04/20 06:17 05/04/20 06:17 Labs: Abnormal Lab Results - Last 24 Hours (Table) 05/04/20 05/04/20 05/04/20 Range/Units 06:17 06:17 06:17 WBC 14.5 H (3.8-10.6) k/uL Neutrophils # 12.7 H (1.3-7.7) k/uL D-Dimer 0.88 H (<0.60) mg/L FEU Carbon Dioxide 21.0 L (21.6-31.8) mmol/L BUN/Creatinine Ratio 21.00 H (12.00-20.00) Ratio Glucose 121 H (70-110) mg/dL Lactate Dehydrogenase 505 H (120-246) U/L C-Reactive Protein 1.9 H (0.0-0.8) mg/dL Microbiology - Last 24 Hours (Table) 05/02/20 11:32 Blood Culture - Preliminary Blood No Growth after 48 hours Assessment and Plan Assessment: 1 Acute hypoxic respiratory failure related to acute CoVID 19 related pneumonia, recovered 2 Acute exacerbation of chronic obstructive pulmonary disease 3 Increased inflammatory markers, and increased d-dimer without evidence of pulmonary embolism on the CTA chest related to acute COVID 19 related pneumonia 4 Extensive emphysematous changes throughout the lungs greater on the right, and findings overall appearing suggestive of pulmonary fibrosis 5 Former smoker, in remission for 47 years, does carry 23 years of smoking history Plan: The patient was seen and evaluated by Dr. Osorio He is cleared for discharge from the pulmonary standpoint Did not qualify for home oxygen Continue home isolation Follow up with his PCP in 1 week I, the cosigning physician, performed a history & physical examination of the patient. Lungs sounds are clear. Maintaining good O2 saturations in the 90s on room air. I discussed the assessment and plan of care with my nurse practitioner, Vinita Gao. I attest to the above note as dictated by her.
--- NOTE | 2020-05-04 18:16 | P.DS ---
Providers Date of admission: 05/02/20 13:35 Expected date of discharge: 05/04/20 Attending physician: Lynette Benson MD Consults: 05/02/20 16:38 Consult Physician Urgent Consulting Provider: Joby Hayden Consult Reason/Comments: COVID Do you want consulting provider notified?: Yes Primary care physician: Sheryl Pinedo MD Hospital Course: Discharge Diagnosis: COVID-19 Acute hypoxic respiratory failure Arthritis Emphysematous changes in lungs on CT Hospital Course: Patient is a 74-year-old male with no known past medical history who presented initially to Dr. Mcgarry's office with complaints of chills for 5 days. [facility] where he underwent testing including a rapid Covid which was negative. He was sent here due to hypoxia. On arrival to the ER here he was noted to have a fever of 100.1, respiratory rate of 26, and room air pulse ox 92%. He was noted to have an elevated d-dimer and subsequently underwent a CT of the chest which was negative for pulmonary embolism but demonstrated emphysematous changes and possible pulmonary fibrosis. He tested positive for Covid 19. He was noted to have a mildly elevated CRP and LDH. He was started on dexamethasone, zinc, and vitamin C/D. He was admitted for further monitoring. On the morning of 05/03 he was noted to have an O2 sat of 93% on 2 L nasal cannula, he had been satting 98% on 2 L nasal cannula the night prior. He was requiring home O2 on 05/03 but had significant improvement in his breathing by 05/04. He was determined stable for discharge on 05/04 but did not require home O2. He was subsequently discharged home to complete dexamethasone, zinc, vitamin C, vitamin D, and aspirin. He should follow-up with a Tele health visit with Dr. Pinedo in 3-5 days. Patient seen and examined at bedside. Feeling better today. Breathing is better. No nausea or vomiting. He is worried as he is not able to work at home like he used to be able to. He feels as though he needs to retire but is concerned about money. He had a with a lot of health problems and he subsequently sold their house and used their savings to half medical bills. She approximately 3 years ago with out her social security has required to continue working. He feels as though he is slowing down and were difficult. I've asked him to discuss this with his primary care physician Dr. Pinedo for alternatives. Vital signs reviewed and stable. General: non toxic, no distress, appears at stated age Derm: warm, dry Head: atraumatic, normocephalic, symmetric Eyes: EOMI, no lid lag, anicteric sclera Mouth: no lip lesion, mucus membranes moist Cardiovascular: S1S2 reg, no murmur, positive posterior tibial pulse bilateral, Lungs: Course bs bilateral, no rhonchi, no rales , no accessory muscle use, no conversational dyspnea Abdominal: soft, nontender to palpation, no guarding, no appreciable organomegaly Ext: no gross muscle atrophy, no edema, no contractures Neuro: CN II-XI grossly intact, no focal neuro deficits Psych: Alert, oriented, appropriate affect A total of 35 minutes of time were spent preparing this complex discharge summary . Patient Condition at Discharge: Fair Plan - Discharge Summary Discharge Rx Participant: No New Discharge Prescriptions: New Aspirin [Adult Low Dose Aspirin EC] 81 mg PO DAILY #14 tablet. dexAMETHasone [Hexadrol] 6 mg PO DAILY #27 tab Zinc Sulfate [Orazinc] 220 mg PO DAILY #14 cap Albuterol Inhaler [Ventolin Hfa Inhaler] 2 puff INHALATION RT-Q6H PRN #1 inhaler PRN Reason: Shortness Of Breath Or Wheezing Cholecalciferol [Vitamin D3] 400 unit PO DAILY #14 tab Famotidine [Pepcid] 40 mg PO HS #14 tab Discharge Medication List Albuterol Inhaler [Ventolin Hfa Inhaler] 2 puff INHALATION RT-Q6H PRN #1 inhaler 05/03/20 [Rx] Aspirin [Adult Low Dose Aspirin EC] 81 mg PO DAILY #14 tablet. 05/03/20 [Rx] Cholecalciferol [Vitamin D3] 400 unit PO DAILY #14 tab 05/03/20 [Rx] Famotidine [Pepcid] 40 mg PO HS #14 tab 05/03/20 [Rx] Zinc Sulfate [Orazinc] 220 mg PO DAILY #14 cap 05/03/20 [Rx] dexAMETHasone [Hexadrol] 6 mg PO DAILY #27 tab 05/03/20 [Rx] Follow up Appointment(s)/Referral(s): Sheryl Pinedo MD [Primary Care Provider] - 05/09/20 10:45 am (This is a virtural appointment not in office) Patient Instructions/Handouts: Famotidine (By mouth), Albuterol (By mouth), Aspirin (By mouth), Zinc Sulfate (By mouth), Dexamethasone (By mouth), Cholecalciferol (By mouth), Viral Pneumonia (DC) Activity/Diet/Wound Care/Special Instructions: Activity: as tolerated Diet: heart healthy Special Instructions: Obtain a pulse ox and monitor oxygen levels if less than 90% you need to come to back to the hospital if your breathing worsens. Discharge Disposition: HOME SELF-CARE
== END 2020-05-04 15:07 | disposition home or self-care (01) | DRG 177 ==
LOC: EC 10:32 → 6NMEDSUR 13:35
PROVIDERS: ADMIT Internal Medicine; ATTEND Internal Medicine
DX: U07.1 COVID-19 (principal); J12.89 Other viral pneumonia; J96.01 Acute respiratory failure with hypoxia; J44.1 Chronic obstructive pulmonary disease with (acute) exacerbation; D72.810 Lymphocytopenia; M19.041 Primary osteoarthritis, right hand; M19.042 Primary osteoarthritis, left hand; J84.10 Pulmonary fibrosis, unspecified; Z98.890 Other specified postprocedural states; Z79.899 Other long term (current) drug therapy; Z79.82 Long term (current) use of aspirin; Z80.9 Family history of malignant neoplasm, unspecified; Z87.891 Personal history of nicotine dependence
CPT/HCPCS: 36415; 71046; 71275; 80048; 80053; 82550; 82728; 83605; 83615; 83735; 83880; 84145; 84484; 85025; 85379; 85610; 85730; 86140; 87040; 87635; 93005; 94640; 99285

== ENCOUNTER 2020-05-10 08:49 | Inpatient (IN) | payer MEDICARE ==
[2020-05-10] MEDS ORDERED: ALBUTEROL HFA INHALER INHALATION STA (09:06)
[2020-05-10 09:32] LABS: Basophils # (A) 0.2 k/uL (0-0.2); Basophils % (A) 1 %; Eosinophils # (A) 0.1 k/uL (0-0.7); Eosinophils % (A) 0 %; Lymphocytes # (A) 1.5 k/uL (1.0-4.8); Lymphocytes % (A) 7 %; MCH 31.9 pg (25.0-35.0); MCHC 34.1 g/dL (31.0-37.0); MCV 93.4 fL (80.0-100.0); Mean Platelet Volume 7.3; Monocytes # (A) 0.9 k/uL (0-1.0); Monocytes % (A) 5 %; Neutrophils # (A) 17.1 k/uL (1.3-7.7); Neutrophils % (A) 86 %; RDW 12.6 % (11.5-15.5)
[2020-05-10 09:49] LABS: Albumin 4.2 g/dL (3.5-5.0); C Reactive Protein 17.6 mg/L (<10.0); Calcium 9.2 mg/dL (8.4-10.2); Magnesium 2.4 mg/dL (1.6-2.3); Potassium 4.4 mmol/L (3.5-5.1); Total Bilirubin 1.6 mg/dL (0.2-1.3); Total Protein 8.1 g/dL (6.3-8.2)
--- NOTE | 2020-05-10 09:49 | XR ---
EXAMINATION TYPE: XR chest 1V portable DATE OF EXAM: 05/10/2020 COMPARISON: Chest x-ray and CTA chest 8 days ago and older x-ray May 12, 2019 HISTORY: Shortness of breath, suspected covid 19 pneumonia TECHNIQUE: Single AP portable frontal upright view of the chest is obtained. FINDINGS: There is background chronic emphysematous and pulmonary fibrotic change bilaterally with p ersistent increased opacities greatest in the periphery and basilar region. No pleural effusion or p neumothorax seen bilaterally. The cardiac silhouette size remains within normal limits. The osseous structures are intact. IMPRESSION: Persistent bilateral multifocal acute infiltrates on background chronic emphysematous an d pulmonary fibrotic changes. No significant change from most recent studies. Findings consistent wit h covid 19 infection.
[2020-05-10 09:56] LABS: HCT 56.4 % (39.0-53.0); Platelet Count 474 k/uL (150-450)
[2020-05-10 09:57] LABS: HGB 19.2 gm/dL (13.0-17.5); RBC 6.04 m/uL (4.30-5.90)
--- NOTE | 2020-05-10 10:06 | ED ---
SOB HPI - General Chief Complaint: Shortness of Breath Stated Complaint: COVID+/SOB Time Seen by Provider: 05/10/20 08:50 Source: EMS Mode of arrival: EMS Limitations: no limitations - History of Present Illness Initial Comments: Patient is a 74-year-old male with past medical history of arthritis who presents emergency Department with worsening shortness of breath. Patient seen on May 02 and hospitalized to the second. At that time he was diagnosed Covid. States he went home on a cocktail of supplements and steroids. Patient has been taking them as directed. He is not given any oxygen. States that he has had worsening shortness of breath to where he called EMS this morning. EMS found the patient to be satting 88% home with tachypnea. He denies chest pain, fevers, nausea, vomiting or diarrhea. No other alleviating, precipitating or modifying factors - Related Data Previous Rx's Medication Instructions Recorded Albuterol Inhaler [Ventolin Hfa 2 puff INHALATION RT-Q6H PRN #1 05/03/20 Inhaler] inhaler Aspirin [Adult Low Dose Aspirin EC] 81 mg PO DAILY #14 tablet.dr 05/03/20 Cholecalciferol [Vitamin D3] 400 unit PO DAILY #14 tab 05/03/20 Famotidine [Pepcid] 40 mg PO HS #14 tab 05/03/20 Zinc Sulfate [Orazinc] 220 mg PO DAILY #14 cap 05/03/20 dexAMETHasone [Hexadrol] 6 mg PO DAILY #27 tab 05/03/20 Allergies Allergy/AdvReac Type Severity Reaction Status Date / Time No Known Allergies Allergy Verified 05/10/20 09:20 Review of Systems ROS Statement: Those systems with pertinent positive or pertinent negative responses have been documented in the HPI. ROS Other: All systems not noted in ROS Statement are negative. Past Medical History Past Medical History: No Reported History Additional Past Medical History / Comment(s): Arthritis bilateral hands History of Any Multi-Drug Resistant Organisms: None Reported Past Surgical History: Hernia Repair Additional Past Surgical History / Comment(s): L inguinal hernia repair. Past Anesthesia/Blood Transfusion Reactions: No Reported Reaction Past Psychological History: No Psychological Hx Reported Smoking Status: Never smoker Past Alcohol Use History: Occasional Past Drug Use History: None Reported - Past Family History Father Additional Family Medical History / Comment(s): Father from diptheria treatment Mother Family Medical History: Cancer Additional Family Medical History / Comment(s): Pt cannot recall type of cancer. General Exam Limitations: no limitations General appearance: alert, in no apparent distress Head exam: Present: atraumatic, normocephalic, normal inspection Eye exam: Present: normal appearance, PERRL, EOMI. Absent: scleral icterus, conjunctival injection, periorbital swelling ENT exam: Present: normal exam, mucous membranes moist Neck exam: Present: normal inspection. Absent: tenderness, meningismus, lymphadenopathy Respiratory exam: Present: respiratory distress, other (tachypnia, conversational dypnea). Absent: wheezes, rales, rhonchi, stridor Cardiovascular Exam: Present: regular rate, normal rhythm, normal heart sounds. Absent: systolic murmur, diastolic murmur, rubs, gallop, clicks GI/Abdominal exam: Present: soft, normal bowel sounds. Absent: distended, tenderness, guarding, rebound, rigid Extremities exam: Present: normal inspection, full ROM, normal capillary refill. Absent: tenderness, pedal edema, joint swelling, calf tenderness Back exam: Present: normal inspection Neurological exam: Present: alert, oriented X3, CN II-XII intact Psychiatric exam: Present: normal affect, normal mood Skin exam: Present: warm, dry, intact, normal color. Absent: rash Course Vital Signs 05/10/20 05/10/20 05/10/20 08:51 08:58 11:29 Temperature 97.9 F Pulse Rate 80 83 Pulse Rate [ Right] Respiratory 34 H 24 24 Rate Blood Pressure 117/76 110/75 Blood Pressure [Left Arm] O2 Sat by Pulse 90 L 94 L Oximetry 05/10/20 05/10/20 05/10/20 11:30 14:22 16:26 Temperature 96.9 F L Pulse Rate 86 77 Pulse Rate [ Right] Respiratory 18 18 Rate Blood Pressure 110/78 124/72 Blood Pressure [Left Arm] O2 Sat by Pulse 96 95 96 Oximetry 05/10/20 05/10/20 05/11/20 19:21 23:00 00:12 Temperature 97.1 F L Pulse Rate 93 Pulse Rate [ Right] Respiratory 18 24 Rate Blood Pressure 134/96 Blood Pressure [Left Arm] O2 Sat by Pulse 94 L 86 L Oximetry 05/11/20 05/11/20 05/11/20 00:36 00:42 01:50 Temperature 97.5 F L Pulse Rate Pulse Rate [ 78 Right] Respiratory 18 20 18 Rate Blood Pressure Blood Pressure 146/94 [Left Arm] O2 Sat by Pulse 91 L 93 L 93 L Oximetry 05/11/20 05/11/20 05/11/20 04:17 07:17 07:53 Temperature 97.9 F Pulse Rate Pulse Rate [ 73 Right] Respiratory 20 26 H 26 H Rate Blood Pressure Blood Pressure 141/83 [Left Arm] O2 Sat by Pulse 92 L 6 L Oximetry 05/11/20 05/11/20 05/11/20 09:06 12:28 15:45 Temperature Pulse Rate 72 64 Pulse Rate [ Right] Respiratory 24 20 Rate Blood Pressure 157/87 Blood Pressure [Left Arm] O2 Sat by Pulse 97 93 L 96 Oximetry 05/11/20 16:43 Temperature 97.9 F Pulse Rate 75 Pulse Rate [ Right] Respiratory 16 Rate Blood Pressure 125/99 Blood Pressure [Left Arm] O2 Sat by Pulse 95 Oximetry Medical Decision Making - Medical Decision Making Upon arrival the patient is placed in room 4. There are history and physical exam was performed. Patient is placed on 2 L of oxygen for his increased work of breathing. Laboratory studies were conducted. Chest x-ray was performed. Patient has a leukocytosis of 20,000. D-dimer 3.7. Hemoglobin 19.2. Lactic ac id 2.5. LDH and C-reactive protein elevated. Chest x-ray demonstrates persistent bilateral multifocal acute infiltrates. Because of the patient's increased worker breathing did recommend hospital admission for which patient did agree to. Discuss case with Dr. Hutchison who agreed to admit the patient. Requesting ABG. Pt agreed to this plan and he was admitted in stable condition - Lab Data Result diagrams: 05/11/20 05:53 05/11/20 05:53 Lab Results 05/10/20 05/10/20 05/10/20 Range/Units 09:17 09:17 09:17 WBC 20.0 H (3.8-10.6) k/uL RBC 6.04 H (4.30-5.90) m/uL Hgb 19.2 H* (13.0-17.5) gm/dL Hct 56.4 H (39.0-53.0) % MCV 93.4 (80.0-100.0) fL MCH 31.9 (25.0-35.0) pg MCHC 34.1 (31.0-37.0) g/dL RDW 12.6 (11.5-15.5) % Plt Count 474 H D (150-450) k/uL MPV 7.3 Neutrophils % 86 % Lymphocytes % 7 % Monocytes % 5 % Eosinophils % 0 % Basophils % 1 % Neutrophils # 17.1 H (1.3-7.7) k/uL Lymphocytes # 1.5 (1.0-4.8) k/uL Monocytes # 0.9 (0-1.0) k/uL Eosinophils # 0.1 (0-0.7) k/uL Basophils # 0.2 (0-0.2) k/uL PT (9.0-12.0) sec INR (<1.2) APTT (22.0-30.0) sec D-Dimer (<0.60) mg/L FEU Sodium 139 (137-145) mmol/L Potassium 4.4 (3.5-5.1) mmol/L Chloride 104 (98-107) mmol/L Carbon Dioxide 25 (22-30) mmol/L Anion Gap 10 mmol/L BUN 25 H (9-20) mg/dL Creatinine 1.20 (0.66-1.25) mg/dL Est GFR (CKD-EPI)AfAm 69 (>60 ml/min/1.73 sqM) Est GFR (CKD-EPI)NonAf 60 (>60 ml/min/1.73 sqM) Glucose 135 H (74-99) mg/dL Lactic Ac Sepsis Rflx Plasma Lactic Acid Srinivsa 2.5 H* (0.7-2.0) mmol/L Calcium 9.2 (8.4-10.2) mg/dL Magnesium 2.4 H (1.6-2.3) mg/dL Ferritin 2115.3 H (22.0-322.0) ng/mL Total Bilirubin 1.6 H (0.2-1.3) mg/dL AST 50 (17-59) U/L ALT 72 H (4-49) U/L Alkaline Phosphatase 115 (38-126) U/L Lactate Dehydrogenase 1689 H (313-618) U/L C-Reactive Protein 17.6 H (<10.0) mg/L Total Protein 8.1 (6.3-8.2) g/dL Albumin 4.2 (3.5-5.0) g/dL Procalcitonin (0.02-0.09) ng/mL 05/10/20 05/10/20 05/10/20 Range/Units 09:17 09:48 10:24 WBC (3.8-10.6) k/uL RBC (4.30-5.90) m/uL Hgb (13.0-17.5) gm/dL Hct (39.0-53.0) % MCV (80.0-100.0) fL MCH (25.0-35.0) pg MCHC (31.0-37.0) g/dL RDW (11.5-15.5) % Plt Count (150-450) k/uL MPV Neutrophils % % Lymphocytes % % Monocytes % % Eosinophils % % Basophils % % Neutrophils # (1.3-7.7) k/uL Lymphocytes # (1.0-4.8) k/uL Monocytes # (0-1.0) k/uL Eosinophils # (0-0.7) k/uL Basophils # (0-0.2) k/uL PT 10.0 (9.0-12.0) sec INR 1.0 (<1.2) APTT 22.2 (22.0-30.0) sec D-Dimer 3.70 H (<0.60) mg/L FEU Sodium (137-145) mmol/L Potassium (3.5-5.1) mmol/L Chloride (98-107) mmol/L Carbon Dioxide (22-30) mmol/L Anion Gap mmol/L BUN (9-20) mg/dL Creatinine (0.66-1.25) mg/dL Est GFR (CKD-EPI)AfAm (>60 ml/min/1.73 sqM) Est GFR (CKD-EPI)NonAf (>60 ml/min/1.73 sqM) Glucose (74-99) mg/dL Lactic Ac Sepsis Rflx Y Plasma Lactic Acid Srinivas (0.7-2.0) mmol/L Calcium (8.4-10.2) mg/dL Magnesium (1.6-2.3) mg/dL Ferritin (22.0-322.0) ng/mL Total Bilirubin (0.2-1.3) mg/dL AST (17-59) U/L ALT (4-49) U/L Alkaline Phosphatase (38-126) U/L Lactate Dehydrogenase (313-618) U/L C-Reactive Protein (<10.0) mg/L Total Protein (6.3-8.2) g/dL Albumin (3.5-5.0) g/dL Procalcitonin 0.05 (0.02-0.09) ng/mL - EKG Data EKG Comments: EKG demonstrates a sinus rhythm with ventricular rate of 89. [place] interval 128. QRS 82. QTC of 459. Q-wave lead 3. No acute ST segment elevations or depressions Disposition Clinical Impression: COVID-19, Respiratory failure with hypoxia, Leukocytosis Disposition: ADMITTED IP TO THIS [facility] Condition: Good Is patient prescribed a controlled substance at d/c from ED?: No Decision to Admit Reason: Admit from EC Decision Date: 05/10/20 Decision Time: 11:11
[2020-05-10] MEDS ORDERED: ACETAMINOPHEN TAB 325 MG TAB PO PRN (11:18)
[2020-05-10] MEDS ORDERED: NALOXONE 0.4 MG/ML 1 ML VIAL IV PRN (11:18)
[2020-05-10] MEDS ORDERED: ENOXAPARIN 40 MG/0.4 ML SYRINGE SQ STA (11:20)
[2020-05-10] MEDS ORDERED: dexAMETHasone 2 MG TAB PO STA (11:21)
[2020-05-10] MEDS ORDERED: cefTRIAXone IN SWFI 1,000 MG/10 ML SYRINGE IVP STA (11:24)
[2020-05-10 11:51] LABS: D-Dimer 3.7 mg/L FEU (<0.60); Partial Thromboplastin Time 22.2 sec (22.0-30.0)
[2020-05-10 11:58] LABS: ABG Base Excess -4.7 mmol/L; ABG HCO3 19 mmol/L (21-25); ABG Oxygen Saturation 97.6 % (94-97); ABG PCO2 26 mmHg (35-45); ABG PH 7.47 (7.35-7.45); ABG PO2 86 mmHg (83-108); ABG TCO2 20 mmol/L (19-24); Allen Test Performed? Yes
[2020-05-10] MEDS: SODIUM CHLORIDE 0.9% 1,000 ML IV SCH ×2 (12:40→22:02)
--- NOTE | 2020-05-10 13:59 | P.HPIM ---
History of Present Illness H&P Date: 05/10/20 Chief Complaint: Dyspnea 74 year old man with history of COPD with pulmonary fibrosis, recent diagnosis of COVID, hx of nicotine use in remission presented with increasing dyspnea. Patient was recently admitted and discharged here from 05/02-05/03, where his presentation of illness was 5 days of chills, weakness, and cough starting from 04/27. He initially required oxygen, but then quickly improved with dexamethasone/vitamin c/D/Zinc/Famotidine, and was discharged home on room air to self-quarantine. However, in the last 1-2 days, patient describes gradually worsening dyspnea, especially on exertion. His other symptoms include cough, and MELISSA; but he denies anosmia, headache, fevers, chills, nausea, vomiting, abdominal pain, chest pain, palps, orthopnea, dysuria/dyschezia, melena/hematochezia. Patient was requiring 4L NC on admission with saturations of 96%; CBC is remarkable for WBC of 20, Hgb of 19. LDH, CRP are elevated. CXR demonstrates persistent multifocal acute infiltrates. Review of Systems All Systems reviewed and pertinent positives and negatives noted in HPI, all other symptoms are negative Past Medical History Past Medical History: No Reported History Additional Past Medical History / Comment(s): Arthritis bilateral hands History of Any Multi-Drug Resistant Organisms: None Reported Past Surgical History: Hernia Repair Additional Past Surgical History / Comment(s): L inguinal hernia repair. Past Anesthesia/Blood Transfusion Reactions: No Reported Reaction Past Psychological History: No Psychological Hx Reported Smoking Status: Never smoker Past Alcohol Use History: Occasional Past Drug Use History: None Reported - Past Family History Father Additional Family Medical History / Comment(s): Father from diptheria treatment Mother Family Medical History: Cancer Additional Family Medical History / Comment(s): Pt cannot recall type of cancer. Medications and Allergies Home Medications Medication Instructions Recorded Confirmed Type Albuterol Inhaler [Ventolin Hfa 2 puff INHALATION RT-Q6H PRN #1 05/03/20 05/10/20 Rx Inhaler] inhaler Aspirin [Adult Low Dose Aspirin EC] 81 mg PO DAILY #14 tablet. 05/03/20 05/10/20 Rx Cholecalciferol [Vitamin D3] 400 unit PO DAILY #14 tab 05/03/20 05/10/20 Rx Famotidine [Pepcid] 40 mg PO HS #14 tab 05/03/20 05/10/20 Rx Zinc Sulfate [Orazinc] 220 mg PO DAILY #14 cap 05/03/20 05/10/20 Rx dexAMETHasone [Hexadrol] 6 mg PO DAILY #27 tab 05/03/20 05/10/20 Rx Allergies Allergy/AdvReac Type Severity Reaction Status Date / Time No Known Allergies Allergy Verified 05/10/20 09:20 Physical Exam Osteopathic Statement: *. No significant issues noted on an osteopathic structural exam other than those noted in the History and Physical/Consult. Vitals: Vital Signs Temp Pulse Resp BP Pulse Ox 05/10/20 11:30 96.9 F L 86 18 110/78 96 05/10/20 11:29 83 24 110/75 94 L 05/10/20 08:58 24 05/10/20 08:51 97.9 F 80 34 H 117/76 90 L Intake and Output 05/09/20 05/10/20 05/10/20 22:59 06:59 14:59 Other: Weight 99.79 kg Gen: awake, alert HEENT: normocephalic, atraumatic, good hearing acuity, moist mucous membranes Resp: good air exchange, no accessory muscle use, tachypneic CVS: good distal perfusion x 4, RRR, no murmurs, clicks, gallops GI: soft, NTTP, ND : no SPT, no CVAT, tate catheter not present MSK: no pitting edema, no clubbing Neuro: non-focal, no sensory deficits, appropriate tone Psych: cooperative, euthymic mood Results CBC & Chem 7: 05/10/20 09:17 05/10/20 09:17 Labs: Abnormal Lab Results - Last 24 Hours (Table) 05/10/20 05/10/20 05/10/20 Range/Units 09:17 09:17 09:17 WBC 20.0 H (3.8-10.6) k/uL RBC 6.04 H (4.30-5.90) m/uL Hgb 19.2 H* (13.0-17.5) gm/dL Hct 56.4 H (39.0-53.0) % Plt Count 474 H D (150-450) k/uL Neutrophils # 17.1 H (1.3-7.7) k/uL D-Dimer (<0.60) mg/L FEU ABG pH (7.35-7.45) ABG pCO2 (35-45) mmHg ABG HCO3 (21-25) mmol/L ABG O2 Saturation (94-97) % BUN 25 H (9-20) mg/dL Glucose 135 H (74-99) mg/dL Plasma Lactic Acid Srinivas 2.5 H* (0.7-2.0) mmol/L Magnesium 2.4 H (1.6-2.3) mg/dL Total Bilirubin 1.6 H (0.2-1.3) mg/dL ALT 72 H (4-49) U/L Lactate Dehydrogenase 1689 H (313-618) U/L C-Reactive Protein 17.6 H (<10.0) mg/L 05/10/20 05/10/20 05/10/20 Range/Units 10:24 11:54 12:00 WBC (3.8-10.6) k/uL RBC (4.30-5.90) m/uL Hgb (13.0-17.5) gm/dL Hct (39.0-53.0) % Plt Count (150-450) k/uL Neutrophils # (1.3-7.7) k/uL D-Dimer 3.70 H (<0.60) mg/L FEU ABG pH 7.47 H (7.35-7.45) ABG pCO2 26 L (35-45) mmHg ABG HCO3 19 L (21-25) mmol/L ABG O2 Saturation 97.6 H (94-97) % BUN (9-20) mg/dL Glucose (74-99) mg/dL Plasma Lactic Acid Srinivas 2.2 H* (0.7-2.0) mmol/L Magnesium (1.6-2.3) mg/dL Total Bilirubin (0.2-1.3) mg/dL ALT (4-49) U/L Lactate Dehydrogenase (313-618) U/L C-Reactive Protein (<10.0) mg/L Assessment and Plan Assessment: 1. Sepsis with Acute Hypoxemic Respiratory Failure 2. COVID-19 3. Community Acquired Pneumonia 4. Polycythemia 5. COPD without acute exacerbation 6. Pulmonary Fibrosis 7. History of Nicotine Abuse 74 year old man with history of COPD/Pulmonary Fibrosis, Nicotine Abuse, recent diagnosis of covid 19 presented with acute hypoxemic respiratory failure secondary to mixed community acquired pneumonia and covid-19; with elevated white blood cell count and oxygen requirement meeting criteria for sepsis. Plan: - admit to telemetry, contact, airborne - oxygen PRN, wean as possible - ID, Pulm consult - inhalers ATC - ceftriaxone/azithromycin - continue dexamethasone - continue Vit C/D, Zn, Famotidine - nicotine lozenges PRN on request - IVF DNAR Son is DPOA
[2020-05-10 15:38] LABS: Ferritin 2115.3 ng/mL (22.0-322.0)
--- NOTE | 2020-05-10 16:06 | P.CNPUL ---
History of Present Illness Consult date: 05/10/20 Reason for consult: other Chief complaint: Fatigue History of present illness: 74-year-old white male patient was recently hospitalized from 05/02/2020 through 05/04/2020 for COVID 19 related pneumonia. Positive COVID 19 test done on 05/02/2020, patient has a history of COPD, previous history of smoking in remission for 47 years, osteoarthritis. Patient was treated with Decadron, Lovenox, he had a elevated d-dimer, subsequently underwent a CT a of the chest was negative for pulmonary embolism but demonstrated emphysematous changes and possible pulmonary fibrosis. Patient had mild symptoms, he improved with Cer vidil treatment, his pro-calcitonin level was negative, he was discharged home in stable condition on 05/04/2020. Patient was discharged home on low-dose aspirin, on 6 more days of oral Decadron, zinc sulfate, Ventolin HFA inhaler, vitamin D3, and Pepcid. On 05/10/2020 patient came into the emergency department for evaluation of fatigue, and some shortness of breath. He was taking his medications as directed, he was not requiring any oxygen at discharge. He denied any fever or chills, he called EMS this morning, when the EMS arrived patient O2 sat was 88%, and patient was tachypneic, his vital signs were otherwise stable, no fever, he denied any chest pain, no nausea vomiting or diarrhea. X-ray showed persistent bilateral multifocal acute infiltrates on background chronic emphysematous and pulmonary fibrotic changes. Review of Systems All systems: negative Constitutional: Reports fatigue, Reports weakness, Denies chills, Denies fever Eyes: denies blurred vision, denies pain Ears, nose, mouth and throat: Denies headache, Denies sore throat Cardiovascular: Denies chest pain, Denies shortness of breath Respiratory: Reports dyspnea, Denies cough Gastrointestinal: Denies abdominal pain, Denies diarrhea, Denies nausea, Denies vomiting Musculoskeletal: Denies myalgias Integumentary: Denies pruritus, Denies rash Neurological: Denies numbness, Denies weakness Psychiatric: Denies anxiety, Denies depression Endocrine: Denies fatigue, Denies weight change Past Medical History Past Medical History: No Reported History Additional Past Medical History / Comment(s): Arthritis bilateral hands History of Any Multi-Drug Resistant Organisms: None Reported Past Surgical History: Hernia Repair Additional Past Surgical History / Comment(s): L inguinal hernia repair. Past Anesthesia/Blood Transfusion Reactions: No Reported Reaction Past Psychological History: No Psychological Hx Reported Smoking Status: Never smoker Past Alcohol Use History: Occasional Past Drug Use History: None Reported - Past Family History Father Additional Family Medical History / Comment(s): Father from diptheria treatment Mother Family Medical History: Cancer Additional Family Medical History / Comment(s): Pt cannot recall type of cancer. Medications and Allergies Home Medications Medication Instructions Recorded Confirmed Type Albuterol Inhaler [Ventolin Hfa 2 puff INHALATION RT-Q6H PRN #1 05/03/20 05/10/20 Rx Inhaler] inhaler Aspirin [Adult Low Dose Aspirin EC] 81 mg PO DAILY #14 tablet.dr 05/03/20 05/10/20 Rx Cholecalciferol [Vitamin D3] 400 unit PO DAILY #14 tab 05/03/20 05/10/20 Rx Famotidine [Pepcid] 40 mg PO HS #14 tab 05/03/20 05/10/20 Rx Zinc Sulfate [Orazinc] 220 mg PO DAILY #14 cap 05/03/20 05/10/20 Rx dexAMETHasone [Hexadrol] 6 mg PO DAILY #27 tab 05/03/20 05/10/20 Rx Allergies Allergy/AdvReac Type Severity Reaction Status Date / Time No Known Allergies Allergy Verified 05/10/20 09:20 Physical Exam Vitals: Vital Signs Temp Pulse Resp BP Pulse Ox 05/10/20 14:22 77 18 124/72 95 05/10/20 11:30 96.9 F L 86 18 110/78 96 05/10/20 11:29 83 24 110/75 94 L 05/10/20 08:58 24 05/10/20 08:51 97.9 F 80 34 H 117/76 90 L Intake and Output 05/10/20 05/10/20 05/10/20 06:59 14:59 22:59 Other: Weight 99.79 kg GENERAL EXAM: Alert, very pleasant, 74-year-old white male, 4 L of oxygen with pulse ox of 95-96%, resting comfortably on a gurney in the emergency department comfortable in no apparent distress. HEAD: Normocephalic/atraumatic. EYES: Normal reaction of pupils, equal size. Conjunctiva pink, sclera white. NOSE: Clear with pink turbinates. THROAT: No erythema or exudates. NECK: No masses, no JVD, no thyroid enlargement, no adenopathy. CHEST: No chest wall deformity. Symmetrical expansion. LUNGS: Equal air entry with no crackles, wheeze, rhonchi or dullness. CVS: Regular rate and rhythm, normal S1 and S2, no gallops, no murmurs, no rubs ABDOMEN: Soft, nontender. No hepatosplenomegaly, normal bowel sounds, no guarding or rigidity. EXTREMITIES: No clubbing, no edema, no cyanosis, 2+ pulses and upper and lower extremities. MUSCULOSKELETAL: Muscle strength and tone normal. SPINE: No scoliosis or deformity SKIN: No rashes CENTRAL NERVOUS SYSTEM: Alert and oriented -3. No focal deficits, tone is normal in all 4 extremities. PSYCHIATRIC: Alert and oriented -3. Appropriate affect. Intact judgment and insight. Results - Laboratory Findings CBC and BMP: 05/10/20 09:17 05/10/20 09:17 ABG ABG pH 7.47 (7.35-7.45) H 05/10/20 11:54 ABG pCO2 26 mmHg (35-45) L 05/10/20 11:54 ABG pO2 86 mmHg (83-108) 05/10/20 11:54 ABG O2 Saturation 97.6 % (94-97) H 05/10/20 11:54 PT/INR, D-dimer PT 10.0 sec (9.0-12.0) 05/10/20 10:24 INR 1.0 (<1.2) 05/10/20 10:24 D-Dimer 3.70 mg/L FEU (<0.60) H 05/10/20 10:24 Abnormal lab findings: Abnormal Labs 05/10/20 05/10/20 05/10/20 09:17 09:17 09:17 WBC 20.0 H RBC 6.04 H Hgb 19.2 H* Hct 56.4 H Plt Count 474 H D Neutrophils # 17.1 H D-Dimer ABG pH ABG pCO2 ABG HCO3 ABG O2 Saturation BUN 25 H Glucose 135 H Plasma Lactic Acid Srinivas 2.5 H* Magnesium 2.4 H Ferritin 2115.3 H Total Bilirubin 1.6 H ALT 72 H Lactate Dehydrogenase 1689 H C-Reactive Protein 17.6 H 12/08/20 12/08/20 12/08/20 10:24 11:54 12:00 WBC RBC Hgb Hct Plt Count Neutrophils # D-Dimer 3.70 H ABG pH 7.47 H ABG pCO2 26 L ABG HCO3 19 L ABG O2 Saturation 97.6 H BUN Glucose Plasma Lactic Acid Srinivas 2.2 H* Magnesium Ferritin Total Bilirubin ALT Lactate Dehydrogenase C-Reactive Protein - Diagnostic Findings Chest x-ray: report reviewed, image reviewed Assessment and Plan Plan: Assessment: #1. Acute hypoxic respiratory failure related to COVID 19 pneumonia, initially diagnosed on 05/02/2020 and was previously hospitalized and treated conservatively with steroids, the coagulation and supplements #2. Recent hospitalization for COVID 19t pneumonia from 05/02/2020 through 05/04/2020, patient was discharged on 6 more days of oral Decadron, no oxygen #3. History of COPD/emphysema #4. Previous smoking history in remission for last 47 years #5. Dehydration #6. Leukocytosis #7. Increased d-dimer at 3.7, related to COVID 19 infection Plan: We will increase the Lovenox to 40 mg twice daily, continue with oral Decadron, continue with supplements, chest x-ray has been reviewed showing persistent bilateral multifocal acute infiltrates on the background of chronic emphysematous and pulmonary fibrotic changes, with no significant change. Wean FiO2, patient is requiring supplemental oxygen this time, but denies any significant dyspnea cough or pulmonary symptoms. We'll continue to follow, obtain follow-up inflammatory markers, Idamay on a level. IV hydration, continue supportive treatment. I performed a history & physical examination of the patient and discussed their management with my nurse practitioner, Celina Laboy. I reviewed the nurse practitioner's note and agree with the documented findings and plan of care. Lung sounds are positive for diminished breath sounds The findings and the impression was discussed with the patient. I attest to the documentation by the nurse practitioner. Time with Patient: Greater than 30
[2020-05-10] MEDS: FAMOTIDINE 20 MG TAB PO SCH (22:04)
[2020-05-10] MEDS: ENOXAPARIN 40 MG/0.4 ML SYRINGE SQ SCH (22:05)
--- NOTE | 2020-05-11 01:50 | CONS ---
CONSULTATION DATE OF SERVICE: 05/10/2020. REASON FOR FOLLOWUP: Pneumonia HISTORY OF PRESENT ILLNESS: The patient is a 74-year-old male who was recently admitted to this facility and treated for Covid 19 from April 30/2020 until May 04, 2020, in this patient who was treated with supportive treatment of dexamethasone, Lovenox and zinc sulfate. The patient was subsequently discharged home on Decadron, Ventolin inhaler, vitamin D3 and Pepcid. The patient is presenting back to the ER at [facility] this morning for evaluation of increasing shortness of breath that has been getting worse for the last few days. On arrival to the EMS, the patient was found to be hypoxic with O2 sats of 88%. He was also tachypneic. The patient denies having any headache or URI symptoms. Denies having any chest pain. He did have minimal cough with occasional greenish sputum. No hemoptysis. No nausea, no vomiting. No abdominal pain or diarrhea. On arrival to the ER, the patient was afebrile. The patient did have O2 sats of 90%, currently 94% on 4 L nasal cannula. The patient did have a white count of 20,000 with no lymphopenia. D-dimer was 3.70. Lactic acid was elevated. Inflammatory markers are elevated. Procalcitonin was normal. The patient did have a chest x-ray with bilateral multifocal acute infiltrate, chronic emphysematous changes. The patient has been admitted to the hospital. The patient is currently being treated with Rocephin and Zithromax, dexamethasone, Lovenox and zinc sulfate. Infectious disease was consulted for further management. REVIEW OF SYSTEMS: Positive points have been mentioned in HPI. Rest of systems are negative. PAST MEDICAL HISTORY: Osteoarthritis and recent Covid infection. PAST SURGICAL HISTORY: Left groin hernia repair. SOCIAL HISTORY: No history of smoking. Occasionally drinks. No drug use. FAMILY HISTORY: Father from . Mother history of cancer. ALLERGIES: No known drug allergies. MEDICATIONS: Include the patient is currently on zinc, IV fluid, Narcan and Pepcid, Lovenox, dexamethasone, Rocephin, Zithromax, aspirin, Ventolin and Tylenol. PHYSICAL EXAMINATION: Blood pressure 134/96, pulse of 90. Temperature 96.9. He is 94% on 4 L nasal cannula. General description is an elderly male lying in bed in no distress. No tachypnea or accessory muscles of respiration use. HEENT: Examination shows no pallor or scleral icterus. Oral mucosal membranes are dry. Neck: Trachea central. No organomegaly. Lungs unlabored breathing. Few coarse crackles at bases. No wheeze. Heart S1, S2. Regular rate and rhythm. ABDOMEN: Soft, no tenderness. No guarding or rigidity. Extremities: No edema of the feet. Skin examination: No rash or mass palpable. Neurological: Patient is awake, alert, oriented times three. Mood and affect normal. LABS: Hemoglobin is 19.2, white count 20,000. BUN of 25, creatinine 1.2 with lactic acid 2.5. He did have a white count of 2115. LDH was 1689. Chest x-ray report mentioned above. DIAGNOSTIC IMPRESSION AND PLAN: Patient admitted to hospital with increasing shortness of breath and hypoxemia in this patient recently treated for COVID-19 infection now presenting to the hospital with likely in this patient who did have multifocal infiltrate and significant elevated inflammatory marker. Clinically doubt bacterial pneumonia with normal procalcitonin. PLAN: 1. Antibiotic can be safely discontinued. 2. The patient may benefit from high dose of steroids and possible discussed with the Pulmonary. 3. Continue with Lovenox, zinc sulfate. 4. Droplet isolation respiratory support. 5. We will follow on clinical condition and further adjust medication if needed. Thank you for this consultation. Will follow this patient along with you. MMODL / IJN: [id number] /
[2020-05-11] MEDS: SODIUM CHLORIDE 0.9% 1,000 ML IV SCH ×4 (01:51→20:16)
[2020-05-11 06:30] LABS: Basophils % (A) 0 %; Eosinophils % (A) 0 %; HCT 48.9 % (39.0-53.0); Lymphocytes # (A) 1.7 k/uL (1.0-4.8); Lymphocytes % (A) 8 %; MCH 31.1 pg (25.0-35.0); MCHC 32.5 g/dL (31.0-37.0); MCV 95.6 fL (80.0-100.0); Mean Platelet Volume 7.2; Monocytes # (A) 0.9 k/uL (0-1.0); Monocytes % (A) 4 %; Neutrophils # (A) 18.4 k/uL (1.3-7.7); Neutrophils % (A) 87 %; Platelet Count 422 k/uL (150-450); RBC 5.11 m/uL (4.30-5.90); RDW 13.2 % (11.5-15.5); WBC 21.3 k/uL (3.8-10.6)
[2020-05-11 06:32] LABS: HGB 15.9 gm/dL (13.0-17.5)
[2020-05-11] MEDS ORDERED: ENOXAPARIN 40 MG/0.4 ML SYRINGE SQ SCH (09:00)
[2020-05-11] MEDS ORDERED: AZITHROMYCIN 500 MG in SODIUM CHLORIDE 0.9% 250 ML IVPB SCH (09:00)
[2020-05-11] MEDS: dexAMETHasone 2 MG TAB PO SCH (09:59)
[2020-05-11] MEDS: ASPIRIN 81 MG PO SCH (09:59)
[2020-05-11] MEDS: ZINC SULFATE 220 MG CAP PO SCH (09:59)
[2020-05-11] MEDS: ENOXAPARIN 40 MG/0.4 ML SYRINGE SQ SCH ×2 (10:03→20:15)
[2020-05-11] MEDS: CHOLECALCIFEROL 400 UNIT TAB PO SCH (10:55)
--- NOTE | 2020-05-11 11:19 | P.PN ---
Subjective Progress Note Date: 05/11/20 No new complaints today. Appetite is improved, still hypoxic. Abx stopped overnight, lovenox increased. Objective - Vital Signs Vital signs: Vital Signs Temp 97.9 F 05/11/20 07:17 Pulse 73 05/11/20 07:17 Resp 26 H 05/11/20 07:53 BP 141/83 05/11/20 07:17 Pulse Ox 97 05/11/20 09:06 Intake & Output 05/10/20 05/11/20 05/11/20 18:59 06:59 18:59 Intake Total 300 Output Total 550 Balance 300 -550 Weight 99.79 kg Intake: Intake, IV Titration 300 Amount Sodium Chloride 0.9% 1, 300 000 ml @ 150 mls/hr IV . Q6H40M [facility] Rx#:[id number] Output: Urine 550 Other: Voiding Method Toilet # Voids 1 # Bowel Movements 1 - Exam Gen: awake, alert HEENT: normocephalic, atraumatic, good hearing acuity, moist mucous membranes Resp: good air exchange, no accessory muscle use, tachypneic CVS: good distal perfusion x 4, RRR, no murmurs, clicks, gallops GI: soft, NTTP, ND : no SPT, no CVAT, tate catheter not present MSK: no pitting edema, no clubbing Neuro: non-focal, no sensory deficits, appropriate tone Psych: cooperative, euthymic mood - Labs CBC & Chem 7: 05/11/20 05:53 05/10/20 09:17 Labs: Abnormal Lab Results - Last 24 Hours (Table) 05/10/20 05/10/20 05/10/20 Range/Units 09:17 10:24 11:54 WBC (3.8-10.6) k/uL Neutrophils # (1.3-7.7) k/uL D-Dimer 3.70 H (<0.60) mg/L FEU ABG pH 7.47 H (7.35-7.45) ABG pCO2 26 L (35-45) mmHg ABG HCO3 19 L (21-25) mmol/L ABG O2 Saturation 97.6 H (94-97) % Plasma Lactic Acid Srinivas (0.7-2.0) mmol/L Ferritin 2115.3 H (22.0-322.0) ng/mL 05/10/20 05/11/20 05/11/20 Range/Units 12:00 05:53 05:53 WBC 21.3 H (3.8-10.6) k/uL Neutrophils # 18.4 H (1.3-7.7) k/uL D-Dimer 2.18 H (<0.60) mg/L FEU ABG pH (7.35-7.45) ABG pCO2 (35-45) mmHg ABG HCO3 (21-25) mmol/L ABG O2 Saturation (94-97) % Plasma Lactic Acid Srinivas 2.2 H* (0.7-2.0) mmol/L Ferritin (22.0-322.0) ng/mL Assessment and Plan Assessment: 1. Sepsis with Acute Hypoxemic Respiratory Failure 2. COVID-19 3. Community Acquired Pneumonia 4. Polycythemia 5. COPD without acute exacerbation 6. Pulmonary Fibrosis 7. History of Nicotine Abuse 74 year old man with history of COPD/Pulmonary Fibrosis, Nicotine Abuse, recent diagnosis of covid 19 presented with acute hypoxemic respiratory failure secondary to mixed community acquired pneumonia and covid-19; with elevated white blood cell count and oxygen requirement meeting criteria for sepsis. Plan: - admit to telemetry, contact, airborne - oxygen PRN, wean as possible - ID, Pulm consult - inhalers ATC - ceftriaxone/azithromycin discontinued - continue dexamethasone - continue Vit C/D, Zn, Famotidine - nicotine lozenges PRN on request - IVF DNAR Son is DPOA
[2020-05-11 11:33] LABS: African American GFR (CKD) 86.2 (60.0-200.0); Anion Gap 8.2 mmol/L (4.00-12.00); C Reactive Protein 2.3 mg/dL (0.0-0.8); Calcium 8.3 mg/dL (8.7-10.3); Carbon Dioxide 21.8 mmol/L (21.6-31.8); Magnesium 2.4 mg/dL (1.5-2.4); Non-African American GFR(CKD) 74.3 (60.0-200.0); Potassium 4.8 mmol/L (3.5-5.5)
--- NOTE | 2020-05-11 13:16 | P.PN ---
Subjective Progress Note Date: 05/11/20 Principal diagnosis: COVID 19 74-year-old white male patient was recently hospitalized from 05/02/2020 through 05/04/2020 for COVID 19 related pneumonia. Positive COVID 19 test done on 05/02/2020, patient has a history of COPD, previous history of smoking in remission for 47 years, osteoarthritis. Patient was treated with Decadron, Lovenox, he had a elevated d-dimer, subsequently underwent a CT a of the chest was negative for pulmonary embolism but demonstrated emphysematous changes and possible pulmonary fibrosis. Patient had mild symptoms, he improved with conservative treatment, his pro-calcitonin level was negative, he was discharged home in stable condition on 05/04/2020. Patient was discharged home on low-dose aspirin, on 6 more days of oral Decadron, zinc sulfate, Ventolin HFA inhaler, vitamin D3, and Pepcid. On 05/10/2020 patient came into the emergency department for evaluation of fatigue, and some shortness of breath. He was taking his medications as directed, he was not requiring any oxygen at discharge. He denied any fever or chills, he called EMS this morning, when the EMS arrived patient O2 sat was 88%, and patient was tachypneic, his vital signs were otherwise stable, no fever, he denied any chest pain, no nausea vomiting or diarrhea. X-ray showed persistent bilateral multifocal acute infiltrates on background chronic emphysematous and pulmonary fibrotic changes. On today's evaluation on 05/11/2020 patient seen in follow-up, he still awaiting a bed in the emergency department, is in no acute events overnight, he is resting comfortably in bed, denies any shortness of breath currently, lung sounds reveal coarse crackles at bilateral bases, no rhonchi or wheezing, no chest discomfort, no cough, he states he is urinating frequently, he is receiving IV hydration with 0.9 normal saline at a rate of 150 ML per hour, no diarrhea, no abdominal pain. He is comfortable, he is currently on 5 L of oxygen however his pulse ox is 98%, FiO2 was dropped back down to 3 L, and he is maintaining sats of 96%.'s on oral Decadron, vitamins and supplements, and Lovenox at 40 mg twice daily, today's d-dimer is down to 2.18. Cell count is 2 1.3, hemoglobin is 15.9, electrolytes and renal profile were within normal limits. Objective - Vital Signs Vital signs: Vital Signs Temp 97.9 F 05/11/20 07:17 Pulse 72 05/11/20 12:28 Resp 24 05/11/20 12:28 BP 157/87 05/11/20 12:28 Pulse Ox 93 L 05/11/20 12:28 Intake & Output 05/10/20 05/11/20 05/11/20 18:59 06:59 18:59 Intake Total 300 Output Total 550 Balance 300 -550 Weight 99.79 kg Intake: Intake, IV Titration 300 Amount Sodium Chloride 0.9% 1, 300 000 ml @ 150 mls/hr IV . Q6H40M [facility] Rx#:[id number] Output: Urine 550 Other: Voiding Method Toilet # Voids 1 # Bowel Movements 1 - Exam GENERAL EXAM: Alert, very pleasant, 74-year-old white male, 4 L of oxygen with pulse ox of 95-96%, resting comfortably on a gurney in the emergency department comfortable in no apparent distress. HEAD: Normocephalic/atraumatic. EYES: Normal reaction of pupils, equal size. Conjunctiva pink, sclera white. NOSE: Clear with pink turbinates. THROAT: No erythema or exudates. NECK: No masses, no JVD, no thyroid enlargement, no adenopathy. CHEST: No chest wall deformity. Symmetrical expansion. LUNGS: Equal air entry with Coarse bibasilar crackles, but no wheeze, rhonchi or dullness. CVS: Regular rate and rhythm, normal S1 and S2, no gallops, no murmurs, no rubs ABDOMEN: Soft, nontender. No hepatosplenomegaly, normal bowel sounds, no guarding or rigidity. EXTREMITIES: No clubbing, no edema, no cyanosis, 2+ pulses and upper and lower extremities. MUSCULOSKELETAL: Muscle strength and tone normal. SPINE: No scoliosis or deformity SKIN: No rashes CENTRAL NERVOUS SYSTEM: Alert and oriented -3. No focal deficits, tone is normal in all 4 extremities. PSYCHIATRIC: Alert and oriented -3. Appropriate affect. Intact judgment and insight. - Labs CBC & Chem 7: 05/11/20 05:53 05/11/20 05:53 Labs: Abnormal Lab Results - Last 24 Hours (Table) 12/01/2005/11/20 05/11/20 Range/Units 09:17 05:53 05:53 WBC 21.3 H (3.8-10.6) k/uL Neutrophils # 18.4 H (1.3-7.7) k/uL D-Dimer (<0.60) mg/L FEU BUN/Creatinine Ratio 23.00 H (12.00-20.00) Ratio Glucose 124 H (70-110) mg/dL Calcium 8.3 L (8.7-10.3) mg/dL Ferritin 2115.3 H (22.0-322.0) ng/mL Lactate Dehydrogenase 527 H (120-246) U/L C-Reactive Protein 2.3 H (0.0-0.8) mg/dL 05/11/20 Range/Units 05:53 WBC (3.8-10.6) k/uL Neutrophils # (1.3-7.7) k/uL D-Dimer 2.18 H (<0.60) mg/L FEU BUN/Creatinine Ratio (12.00-20.00) Ratio Glucose (70-110) mg/dL Calcium (8.7-10.3) mg/dL Ferritin (22.0-322.0) ng/mL Lactate Dehydrogenase (120-246) U/L C-Reactive Protein (0.0-0.8) mg/dL Microbiology - Last 24 Hours (Table) 05/10/20 10:24 Blood Culture - Preliminary Blood No Growth after 24 hours Assessment and Plan Plan: Assessment: #1. Acute hypoxic respiratory failure related to COVID 19 pneumonia, initially diagnosed on 05/02/2020 and was previously hospitalized and treated conservatively with steroids, the coagulation and supplements #2. Recent hospitalization for COVID 19t pneumonia from 05/02/2020 through 05/04/2020, patient was discharged on 6 more days of oral Decadron, no oxygen #3. History of COPD/emphysema #4. Previous smoking history in remission for last 47 years #5. Dehydration #6. Leukocytosis #7. Increased d-dimer at 3.7, related to COVID 19 infection Plan: Current medical treatment, continue current dose Decadron, wean FiO2, patient denies any worsening shortness of breath or coughing, we will obtain follow-up chest x-ray tomorrow, no nausea vomiting or diarrhea, current dose anticoagulation. Pro-calcitonin level was low, antibiotics could be discontinued. We'll continue to follow I performed a history & physical examination of the patient and discussed their management with my nurse practitioner, Celina Laboy. I reviewed the nurse practitioner's note and agree with the documented findings and plan of care. Lung sounds are positive for diminished breath sounds The findings and the impression was discussed with the patient. I attest to the documentation by the nurse practitioner. Time with Patient: Less than 30
[2020-05-11] MEDS: ALBUTEROL HFA INHALER INHALATION PRN (16:44)
[2020-05-11] MEDS: FAMOTIDINE 20 MG TAB PO SCH (20:15)
[2020-05-11] MEDS ORDERED: MENTHOL (NICE) LOZENGE MUCOUS MEM PRN (22:02)
--- NOTE | 2020-05-11 23:35 | PN ---
PROGRESS NOTE DATE OF SERVICE: 05/11/2020 REASON FOR FOLLOWUP: Pneumonia. INTERVAL HISTORY: The patient is currently afebrile. Patient has been breathing more comfortably. Patient denies having any chest pain or shortness of breath with minimal cough which is dry. No nausea, vomiting, abdominal pain or diarrhea. PHYSICAL EXAMINATION: Blood pressure 144/89 with a pulse of 66. Temperature 98.4. He is 98% on 5 L nasal cannula. General description is an elderly male lying in bed in no distress. Respiratory system: Unlabored breathing, decreased intensity of breath sounds in the bases, with no wheeze. Heart S1, S2. Regular rate and rhythm. ABDOMEN: Soft, no tenderness. LABS: Hemoglobin is 15.1, white count 21.3, BUN of 23, creatinine 1.0. DIAGNOSTIC IMPRESSION AND PLAN: Patient admitted to the hospital with difficulty breathing and cough in this patient who did have evidence of pneumonia with recent treatment for COVID-19 infection, more likely possible ARDS. The patient is currently covered with Lovenox, dexamethasone, Rocephin and Azithromycin to continue. Try to obtain a sputum and monitor clinical course closely. MMODL / IJN: [id number] /
[2020-05-12] MEDS: SODIUM CHLORIDE 0.9% 1,000 ML IV SCH ×2 (05:19→10:41)
--- NOTE | 2020-05-12 07:39 | XR ---
EXAMINATION TYPE: XR chest 1V portable DATE OF EXAM: 05/12/2020 CLINICAL HISTORY: Difficulty breathing and covid 19 progress study. TECHNIQUE: Single AP portable upright view of the chest is obtained. COMPARISON: Chest x-ray from 2 days earlier. CTA chest May 02, 2020 FINDINGS: Background chronic emphysematous and pulmonary fibrotic changes with increased peripheral opacities bilaterally redemonstrated. No new pleural effusion or pneumothorax seen. Cardiac silhouett e size is stable and within normal limits. Osseous structures are intact. IMPRESSION: Persistent bilateral multifocal acute peripheral infiltrates on background chronic emphy sematous and pulmonary fibrotic changes. No significant change from most recent x-ray. Findings cons istent with covid 19 infection.
[2020-05-12] MEDS: ASPIRIN 81 MG PO SCH (09:00)
[2020-05-12] MEDS: ZINC SULFATE 220 MG CAP PO SCH (09:00)
[2020-05-12] MEDS: dexAMETHasone 2 MG TAB PO SCH (09:00)
[2020-05-12] MEDS: CHOLECALCIFEROL 400 UNIT TAB PO SCH (09:01)
[2020-05-12] MEDS: ENOXAPARIN 40 MG/0.4 ML SYRINGE SQ SCH ×2 (09:01→19:43)
[2020-05-12 10:11] LABS: Magnesium 2.3 mg/dL (1.5-2.4)
--- NOTE | 2020-05-12 10:38 | P.PN ---
Subjective Progress Note Date: 05/12/20 74-year-old white male patient was recently hospitalized from 05/02/2020 through 05/04/2020 for COVID 19 related pneumonia. Positive COVID 19 test done on 05/02/2020, patient has a history of COPD, previous history of smoking in remission for 47 years, osteoarthritis. Patient was treated with Decadron, Lovenox, he had a elevated d-dimer, subsequently underwent a CT a of the chest was negative for pulmonary embolism but demonstrated emphysematous changes and possible pulmonary fibrosis. Patient had mild symptoms, he improved with conservative treatment, his pro-calcitonin level was negative, he was discharged home in stable condition on 05/04/2020. Patient was discharged home on low-dose aspirin, on 6 more days of oral Decadron, zinc sulfate, Ventolin HFA inhaler, vitamin D3, and Pepcid. On 05/10/2020 patient came into the emergency department for evaluation of fatigue, and some shortness of breath. He was taking his medications as directed, he was not requiring any oxygen at discharge . He denied any fever or chills, he called EMS this morning, when the EMS arrived patient O2 sat was 88%, and patient was tachypneic, his vital signs were otherwise stable, no fever, he denied any chest pain, no nausea vomiting or diarrhea. X-ray showed persistent bilateral multifocal acute infiltrates on background chronic emphysematous and pulmonary fibrotic changes. On today's evaluation on 05/11/2020 patient seen in follow-up, he still awaiting a bed in the emergency department, is in no acute events overnight, he is resting comfortably in bed, denies any shortness of breath currently, lung sounds reveal coarse crackles at bilateral bases, no rhonchi or wheezing, no chest discomfort, no cough, he states he is urinating frequently, he is receiving IV hydration with 0.9 normal saline at a rate of 150 ML per hour, no diarrhea, no abdominal pain. He is comfortable, he is currently on 5 L of oxygen however his pulse ox is 98%, FiO2 was dropped back down to 3 L, and he is maintaining sats of 96%.'s on oral Decadron, vitamins and supplements, and Lovenox at 40 mg twice daily, today's d-dimer is down to 2.18. Cell count is 21.3, hemoglobin is 15.9, electrolytes and renal profile were within normal limits. on 05/12/2020 the patient has no complaints. He is improving. His white cell count is elevated probably a steroid effect. On 5 L, he was pulse oxing 97%. I am down titrating his oxygen flow. No nausea. No vomiting. No diarrhea. No abdominal pain. He remains on Decadron. He is also on supplements. He is on Lovenox. Objective - Vital Signs Vital signs: Vital Signs Temp 98.3 F 05/12/20 09:58 Pulse 79 05/12/20 09:58 Resp 28 H 05/12/20 09:58 BP 123/68 05/12/20 09:58 Pulse Ox 97 05/12/20 09:58 Intake & Output 05/11/20 05/12/20 05/12/20 18:59 06:59 18:59 Output Total 550 675 600 Balance -550 -675 -600 Output: Urine 550 675 600 Other: Voiding Method Toilet - Exam GENERAL EXAM: Alert, very pleasant, 74-year-old white male, 5 L of oxygen with pulse ox of 95-96%, resting comfortably on a gurney in the emergency department comfortable in no apparent distress. HEAD: Normocephalic/atraumatic. EYES: Normal reaction of pupils, equal size. Conjunctiva pink, sclera white. NOSE: Clear with pink turbinates. THROAT: No erythema or exudates. NECK: No masses, no JVD, no thyroid enlargement, no adenopathy. CHEST: No chest wall deformity. Symmetrical expansion. LUNGS: Equal air entry with Coarse bibasilar crackles, but no wheeze, rhonchi or dullness. CVS: Regular rate and rhythm, normal S1 and S2, no gallops, no murmurs, no rubs ABDOMEN: Soft, nontender. No hepatosplenomegaly, normal bowel sounds, no guarding or rigidity. EXTREMITIES: No clubbing, no edema, no cyanosis, 2+ pulses and upper and lower extremities. MUSCULOSKELETAL: Muscle strength and tone normal. SPINE: No scoliosis or deformity SKIN: No rashes CENTRAL NERVOUS SYSTEM: Alert and oriented -3. No focal deficits, tone is normal in all 4 extremities. PSYCHIATRIC: Alert and oriented -3. Appropriate affect. Intact judgment and insight. - Labs CBC & Chem 7: 05/11/20 05:53 05/11/20 05:53 Labs: Abnormal Lab Results - Last 24 Hours (Table) 05/11/20 05/12/20 Range/Units 05:53 05:19 BUN/Creatinine Ratio 23.00 H (12.00-20.00) Ratio Glucose 124 H (70-110) mg/dL Calcium 8.3 L (8.7-10.3) mg/dL Lactate Dehydrogenase 527 H 601 H (120-246) U/L C-Reactive Protein 2.3 H (0.0-0.8) mg/dL Microbiology - Last 24 Hours (Table) 05/10/20 10:24 Blood Culture - Preliminary Blood No Growth after 24 hours Assessment and Plan Plan: #1. Acute hypoxic respiratory failure related to COVID 19 pneumonia, initially diagnosed on 05/02/2020 and was previously hospitalized and treated conservatively with steroids, the coagulation and supplements. The patient is clinically improving. LDH is modestly elevated at 601 which is slightly higher compared to yesterday. Clinically however the patient is doing better his oxidation is improving. #2. Recent hospitalization for COVID 19t pneumonia from 05/02/2020 through 05/04/2020, patient was discharged on 6 more days of oral Decadron, no oxygen #3. History of COPD/emphysema #4. Previous smoking history in remission for last 47 years #5. Dehydration #6. Leukocytosis #7. Increased d-dimer at 3.7, related to COVID 19 infection Plan: Current medical treatment, continue current dose Decadron, wean FiO2 and I was able to The Patient's FiO2 down to 2-3 L to Maintain Saturation above 90%.we will continue current dose anticoagulation. Pro-calcitonin level was low, antibi otics could be discontinued. the chest x-ray is looking stable, probably better on the left. We'll continue to follow. We'll continue to follow
--- NOTE | 2020-05-12 11:32 | P.PN ---
Subjective Progress Note Date: 05/12/20 Pt feels well today. Oxygenating better on 5L, could trial down-titrating today. Objective - Vital Signs Vital signs: Vital Signs Temp 98.3 F 05/12/20 09:58 Pulse 79 05/12/20 09:58 Resp 28 H 05/12/20 09:58 BP 123/68 05/12/20 09:58 Pulse Ox 97 05/12/20 09:58 Intake & Output 05/11/20 05/12/20 05/12/20 18:59 06:59 18:59 Output Total 550 675 600 Balance -857 -450 -518 Output: Urine 550 675 600 Other: Voiding Method Toilet - Exam Gen: awake, alert HEENT: normocephalic, atraumatic, good hearing acuity, moist mucous membranes Resp: good air exchange, no accessory muscle use, tachypneic CVS: good distal perfusion x 4, RRR, no murmurs, clicks, gallops GI: soft, NTTP, ND : no SPT, no CVAT, tate catheter not present MSK: no pitting edema, no clubbing Neuro: non-focal, no sensory deficits, appropriate tone Psych: cooperative, euthymic mood - Labs CBC & Chem 7: 05/11/20 05:53 05/11/20 05:53 Labs: Abnormal Lab Results - Last 24 Hours (Table) 05/11/20 05/12/20 Range/Units 05:53 05:19 BUN/Creatinine Ratio 23.00 H (12.00-20.00) Ratio Glucose 124 H (70-110) mg/dL Calcium 8.3 L (8.7-10.3) mg/dL Lactate Dehydrogenase 527 H 601 H (120-246) U/L C-Reactive Protein 2.3 H (0.0-0.8) mg/dL Microbiology - Last 24 Hours (Table) 05/10/20 10:24 Blood Culture - Preliminary Blood No Growth after 24 hours Assessment and Plan Assessment: 1. Sepsis with Acute Hypoxemic Respiratory Failure 2. COVID-19 3. Community Acquired Pneumonia 4. Polycythemia 5. COPD without acute exacerbation 6. Pulmonary Fibrosis 7. History of Nicotine Abuse 74 year old man with history of COPD/Pulmonary Fibrosis, Nicotine Abuse, recent diagnosis of covid 19 presented with acute hypoxemic respiratory failure secondary to mixed community acquired pneumonia and covid-19; with elevated white blood cell count and oxygen requirement meeting criteria for sepsis. Plan: - admit to telemetry, contact, airborne - oxygen PRN, wean as possible - ID, Pulm consult - inhalers ATC - ceftriaxone/azithromycin discontinued overnight - continue dexamethasone - continue Vit C/D, Zn, Famotidine - nicotine lozenges PRN on request - IVF DNAR Son is DPOA
[2020-05-12 15:16] VITALS: BMI 34.4
[2020-05-12] MEDS: FAMOTIDINE 20 MG TAB PO SCH (19:43)
--- NOTE | 2020-05-12 22:29 | PN ---
PROGRESS NOTE DATE OF SERVICE: 05/12/2020 REASON FOR FOLLOW UP: COVID-19 infection. INTERVAL COURSE: The patient is currently afebrile. The patient is breathing more comfortably. The patient's FIO2 is currently down to 3 L. Denies having any chest pain. Minimal cough. No nausea. No vomiting. No abdominal pain or diarrhea. PHYSICAL EXAMINATION: Blood pressure 143/76, pulse of 72, temperature 97.7. He is 95% on 3 L nasal cannula. General description is an elderly male up in the bed in no distress. Respiratory system: Unlabored breathing, decreased intensity of breath sounds. No wheeze. Heart S1, S2. Regular rate and rhythm. Abdomen soft, no tenderness. LABS: Hemoglobin 16.8, white count 21.3, D. dimer 2.18, and is 1.0. CRP down to 2.3. DIAGNOSTIC IMPRESSION AND PLAN: Patient admitted to hospital with increasing shortness of breath in this patient with underlying recent history of Covid-19 pneumonia possible pneumonia of an inflammatory/ARDS pattern responding to the steroids to continue. No evidence of any secondary bacterial infection. Elevated white count more likely steroid effect. Hence we will hold on any systemic antibiotic therapy and continue supportive care. MMODL / IJN: [id number] /
[2020-05-13] MEDS: ALBUTEROL HFA INHALER INHALATION PRN ×2 (07:33→15:05)
[2020-05-13] MEDS: ENOXAPARIN 40 MG/0.4 ML SYRINGE SQ SCH ×2 (08:28→20:59)
[2020-05-13] MEDS: CHOLECALCIFEROL 400 UNIT TAB PO SCH (08:28)
[2020-05-13] MEDS: ZINC SULFATE 220 MG CAP PO SCH (08:28)
[2020-05-13] MEDS: dexAMETHasone 2 MG TAB PO SCH (08:28)
[2020-05-13] MEDS: ASPIRIN 81 MG PO SCH (08:28)
--- NOTE | 2020-05-13 10:43 | P.PN ---
Subjective Progress Note Date: 05/13/20 Pt successfully down-titrated to 3L O2 and saturating 96%; he continues to report no complaints. Ongoing titration of O2, anticipate d/c in 1-2 days. Objective - Vital Signs Vital signs: Vital Signs Temp 97.8 F 05/13/20 09:20 Pulse 85 05/13/20 09:20 Resp 22 05/13/20 09:20 BP 114/78 05/13/20 09:20 Pulse Ox 96 05/13/20 09:20 Intake & Output 05/12/20 05/13/20 05/13/20 18:59 06:59 18:59 Output Total 850 Balance -850 Weight 99.79 kg Output: Urine 850 Other: Voiding Method Toilet Urinal # Voids 3 - Exam Gen: awake, alert HEENT: normocephalic, atraumatic, good hearing acuity, moist mucous membranes Resp: good air exchange, no accessory muscle use, tachypneic CVS: good distal perfusion x 4, RRR, no murmurs, clicks, gallops GI: soft, NTTP, ND : no SPT, no CVAT, tate catheter not present MSK: no pitting edema, no clubbing Neuro: non-focal, no sensory deficits, appropriate tone Psych: cooperative, euthymic mood - Labs CBC & Chem 7: 05/11/20 05:53 05/11/20 05:53 Labs: Microbiology - Last 24 Hours (Table) 05/10/20 10:24 Blood Culture - Preliminary Blood No Growth after 48 hours Assessment and Plan Assessment: 1. Sepsis with Acute Hypoxemic Respiratory Failure 2. COVID-19 3. COPD without acute exacerbation 4. Pulmonary Fibrosis 5. History of Nicotine Abuse 74 year old man with history of COPD/Pulmonary Fibrosis, Nicotine Abuse, recent diagnosis of covid 19 presented with acute hypoxemic respiratory failure secondary to mixed community acquired pneumonia and covid-19; with elevated w arcenio blood cell count and oxygen requirement meeting criteria for sepsis. Plan: - admit to telemetry, contact, airborne - oxygen PRN, wean as possible - ID, Pulm consult - inhalers ATC - ceftriaxone/azithromycin discontinued overnight - continue dexamethasone - continue Vit C/D, Zn, Famotidine - nicotine lozenges PRN on request - IVF DNAR Son is DPOA
[2020-05-13 16:35] LABS: Magnesium 2.1 mg/dL (1.5-2.4)
--- NOTE | 2020-05-13 18:05 | P.PN ---
Subjective Progress Note Date: 05/13/20 74-year-old white male patient was recently hospitalized from 05/02/2020 through 05/04/2020 for COVID 19 related pneumonia. Positive COVID 19 test done on 05/02/2020, patient has a history of COPD, previous history of smoking in remission for 47 years, osteoarthritis. Patient was treated with Decadron, Lovenox, he had a elevated d-dimer, subsequently underwent a CT a of the chest was negative for pulmonary embolism but demonstrated emphysematous changes and possible pulmonary fibrosis. Patient had mild symptoms, he improved with conservative treatment, his pro-calcitonin level was negative, he was discharged home in stable condition on 05/04/2020. Patient was discharged home on low-dose aspirin, on 6 more days of oral Decadron, zinc sulfate, Ventolin HFA inhaler, vitamin D3, and Pepcid. On 05/10/2020 patient came into the emergency department for evaluation of fatigue, and some shortness of breath. He was taking his medications as directed, he was not requiring any oxygen at discharge . He denied any fever or chills, he called EMS this morning, when the EMS arrived patient O2 sat was 88%, and patient was tachypneic, his vital signs were otherwise stable, no fever, he denied any chest pain, no nausea vomiting or diarrhea. X-ray showed persistent bilateral multifocal acute infiltrates on background chronic emphysematous and pulmonary fibrotic changes. On today's evaluation on 05/11/2020 patient seen in follow-up, he still awaiting a bed in the emergency department, is in no acute events overnight, he is resting comfortably in bed, denies any shortness of breath currently, lung sounds reveal coarse crackles at bilateral bases, no rhonchi or wheezing, no chest discomfort, no cough, he states he is urinating frequently, he is receiving IV hydration with 0.9 normal saline at a rate of 150 ML per hour, no diarrhea, no abdominal pain. He is comfortable, he is currently on 5 L of oxygen however his pulse ox is 98%, FiO2 was dropped back down to 3 L, and he is maintaining sats of 96%.'s on oral Decadron, vitamins and supplements, and Lovenox at 40 mg twice daily, today's d-dimer is down to 2.18. Cell count is 21.3, hemoglobin is 15.9, electrolytes and renal profile were within normal limits. on 05/12/2020 the patient has no complaints. He is improving. His white cell count is elevated probably a steroid effect. On 5 L, he was pulse oxing 97%. I am down titrating his oxygen flow. No nausea. No vomiting. No diarrhea. No abdominal pain. He remains on Decadron. He is also on supplements. He is on Lovenox. On 05/13/2020, the patient has no specific complaints. The patient is currently on 3 L of oxygen by nasal cannula with pulse ox of 94%. The patient is afebrile. The patient is hemodynamically stable. No significant cough or sputum production. The patient remains on Decadron 6 mg by mouth daily. As mentioned, the FiO2 has been titrated down to 3 L and I'm hoping to titrated down further over the next 24 hours. Objective - Vital Signs Vital signs: Vital Signs Temp 98.7 F 05/13/20 17:34 Pulse 83 05/13/20 17:34 Resp 20 05/13/20 17:34 BP 132/76 05/13/20 17:34 Pulse Ox 94 L 05/13/20 17:34 Intake & Output 05/12/20 05/13/20 05/13/20 18:59 06:59 18:59 Output Total 850 Balance -850 Weight 99.79 kg Output: Urine 850 Other: Voiding Method Toilet Urinal # Voids 3 5 - Exam GENERAL EXAM: Alert, very pleasant, 74-year-old white male, 3 L of oxygen with pulse ox of 95-96%, resting comfortably on a gurney in the emergency department comfortable in no apparent distress. HEAD: Normocephalic/atraumatic. EYES: Normal reaction of pupils, equal size. Conjunctiva pink, sclera white. NOSE: Clear with pink turbinates. THROAT: No erythema or exudates. NECK: No masses, no JVD, no thyroid enlargement, no adenopathy. CHEST: No chest wall deformity. Symmetrical expansion. LUNGS: Equal air entry with Coarse bibasilar crackles, but no wheeze, rhonchi or dullness. CVS: Regular rate and rhythm, normal S1 and S2, no gallops, no murmurs, no rubs ABDOMEN: Soft, nontender. No hepatosplenomegaly, normal bowel sounds, no guarding or rigidity. EXTREMITIES: No clubbing, no edema, no cyanosis, 2+ pulses and upper and lower extremities. MUSCULOSKELETAL: Muscle strength and tone normal. SPINE: No scoliosis or deformity SKIN: No rashes CENTRAL NERVOUS SYSTEM: Alert and oriented -3. No focal deficits, tone is normal in all 4 extremities. PSYCHIATRIC: Alert and oriented -3. Appropriate affect. Intact judgment and insight. - Labs CBC & Chem 7: 05/11/20 05:53 05/11/20 05:53 Labs: Abnormal Lab Results - Last 24 Hours (Table) 05/13/20 Range/Units 08:52 Lactate Dehydrogenase 611 H (120-246) U/L Microbiology - Last 24 Hours (Table) 05/10/20 10:24 Blood Culture - Preliminary Blood No Growth after 72 hours Assessment and Plan Plan: #1. Acute hypoxic respiratory failure related to COVID 19 pneumonia, initially diagnosed on 05/02/2020 and was previously hospitalized and treated conservatively with steroids, the coagulation and supplements. The patient is clinically improving. LDH is modestly elevated at 601 which is slightly higher compared to yesterday. Clinically however the patient is doing better his oxidation is improving. There has been further improvement in patient's oxygenation is currently down to 3 L. The LDH is at 611 which is comparable to yesterday. CRP is down to 2.3. D-dimer was at 2.18. #2. Recent hospitalization for COVID 19t pneumonia from 05/02/2020 through 05/04/2020, patient was discharged on 6 more days of oral Decadron, no oxygen #3. History of COPD/emphysema #4. Previous smoking history in remission for last 47 years #5. Dehydration #6. Leukocytosis #7. Increased d-dimer at 3.7, related to COVID 19 infection, the d-dimer has dropped down to 2.18. Plan: Current medical treatment, continue current dose Decadron, wean FiO2 and I was able to The Patient's FiO2 down to 2-3 L to Maintain Saturation above 90%.we will continue current dose anticoagulation. Pro-calcitonin level was low, antibiotics could be discontinued. the chest x-ray is looking stable, probably better on the left. Consider discharging this patient home with the next 24 hours either on room air oxygen or on few liters of oxygen through a home oxygen concentrator if he continues to have oxygen saturations. It final decision should be done tomorrow.
[2020-05-13] MEDS: FAMOTIDINE 20 MG TAB PO SCH (21:00)
--- NOTE | 2020-05-13 23:24 | PN ---
PROGRESS NOTE DATE OF SERVICE: 05/13/2020 REASON FOR FOLLOWUP: COVID-19 infection. INTERVAL HISTORY: The patient is currently afebrile. The patient is breathing comfortably, still requiring supplemental oxygen, though. No chest pain. Minimal cough. No nausea, no vomiting, no abdominal pain or diarrhea. PHYSICAL EXAMINATION: Blood pressure 123/72 with a pulse of 77, temperature 97.8. He is 94% on 3 L nasal cannula. General description is an elderly male up in the room in no distress. RESPIRATORY SYSTEM: Unlabored breathing with decreased intensity of breath sounds. No wheeze. HEART: S1, S2. Regular rate and rhythm. ABDOMEN: Soft. No tenderness. LABS: LDH is 611. Magnesium was normal. Blood culture negative. DIAGNOSTIC IMPRESSION AND PLAN: Patient with acute COVID-19 infection in this patient who presented to hospital predominantly with inflammatory changes, possibly ARDS. increased. The patient is currently covered with dexamethasone, Lovenox, zinc, and seems to have shown some clinical response. Try to wean off the oxygen. Continue with supportive care. MMODL / IJN: [id number] /
[2020-05-14] MEDS: dexAMETHasone 2 MG TAB PO SCH (07:08)
[2020-05-14] MEDS: CHOLECALCIFEROL 400 UNIT TAB PO SCH (07:09)
[2020-05-14] MEDS: ENOXAPARIN 40 MG/0.4 ML SYRINGE SQ SCH (07:09)
[2020-05-14] MEDS: ZINC SULFATE 220 MG CAP PO SCH (07:09)
[2020-05-14] MEDS: ASPIRIN 81 MG PO SCH (07:09)
[2020-05-14] MEDS: ALBUTEROL HFA INHALER INHALATION PRN (07:50)
[2020-05-14 10:34] VITALS: PULSE 94
--- NOTE | 2020-05-14 11:34 | P.PN ---
Subjective Progress Note Date: 05/14/20 The patient is seen today 05/14/2020 in follow-up on the regular medical floor. He is awake and alert in no acute distress. Up ambulating in his room. He is still requiring 3 L of oxygen. No worsening shortness of breath cough or congestion. He remains on oral Decadron. Objective - Vital Signs Vital signs: Vital Signs Temp 98.3 F 05/14/20 09:34 Pulse 94 05/14/20 09:34 Resp 18 05/14/20 09:34 BP 132/87 05/14/20 09:34 Pulse Ox 90 L 05/14/20 09:34 Intake & Output 05/13/20 05/14/20 05/14/20 18:59 06:59 18:59 Other: Voiding Method Toilet Toilet Urinal Urinal # Voids 5 2 - Exam GENERAL EXAM: Alert, active, pleasant 74-year-old gentleman, on 3 L nasal cannula, comfortable in no apparent distress. HEAD: Normocephalic. EYES: Normal reaction of pupils, equal size. NOSE: Clear with pink turbinates. THROAT: No erythema or exudates. NECK: No masses, no JVD. CHEST: No chest wall deformity. LUNGS: Equal air entry with no crackles, wheeze, rhonchi or dullness. CVS: S1 and S2 normal with no audible murmur, regular rhythm. ABDOMEN: No hepatosplenomegaly, normal bowel sounds, no guarding or rigidity. SPINE: No scoliosis or deformity SKIN: No rashes CENTRAL NERVOUS SYSTEM: No focal deficits, tone is normal in all 4 extremities. EXTREMITIES: There is no peripheral edema. No clubbing, no cyanosis. Peripheral pulses are intact. - Labs CBC & Chem 7: 05/11/20 05:53 05/11/20 05:53 Labs: Abnormal Lab Results - Last 24 Hours (Table) 05/13/20 Range/Units 08:52 Lactate Dehydrogenase 611 H (120-246) U/L Microbiology - Last 24 Hours (Table) 05/10/20 10:24 Blood Culture - Preliminary Blood No Growth after 72 hours Assessment and Plan Assessment: 1 Acute hypoxic respiratory failure secondary to coag 19 pneumonitis. She is currently on 3 L nasal cannula. 2 Recent hospitalization. Over 19 pneumonia from May 02 through 05/04/2020 3 History of COPD 4 Previous history of smoking in remission the last 47 years 5 Dehydration, recovered 6 Leukocytosis, recovered 7 Elevated d-dimer secondary to chronic 19 infection, improved Plan: The patient was seen and evaluated by Dr. Hayden He is cleared for discharge from the pulmonary standpoint Need home oxygen Complete a 10 day course of Decadron Follow-up closely with his PCP I, the cosigning physician, performed a history & physical examination of the patient. Lungs sounds are clear. Maintaining good O2 saturations in the 90s on 3 L/m per nasal canula. I discussed the assessment and plan of care with my nurse practitioner, Vinita Gao. I attest to the above note as dictated by her.
--- NOTE | 2020-05-14 11:50 | P.DS ---
Providers Date of admission: 05/10/20 11:18 Expected date of discharge: 05/14/20 Attending physician: Noble Hutchison MD Consults: 05/10/20 11:19 Consult Physician Urgent Consulting Provider: Joby Hayden Consult Reason/Comments: covid pna, hypoxic resp failure Do you want consulting provider notified?: Yes Consult Physician Urgent Consulting Provider: Kath العلي Consult Reason/Comments: acute covid pna, acute hypoxic resp failure Do you want consulting provider notified?: Yes Primary care physician: Sheryl Pinedo MD Hospital Course: 1. Acute Hypoxemic Respiratory Failure 2. COVID-19 3. COPD without acute exacerbation 4. Pulmonary Fibrosis 5. History of Nicotine Abuse 74 year old man with history of COPD/Pulmonary Fibrosis, Nicotine Abuse, recent diagnosis of covid 19 presented with acute hypoxemic respiratory failure secondary covid-19 superimposed on COPD with pulmonary fibrosis. He was initially thought to have CAP and was started on ceftriaxone/azithromycin, but this was discontinued due to no infectious signs and negative procalcitonin. ID/Pulmonary consulted on the patient, and facilitated management. VTE was considered and lovenox was administered twice daily at 40mg, however, CT Thorax was negative for PE. Patient's home dexamethasone, vitamin C/D, Zinc, and famotidine were continued from previous discharge. Patient did not develop dyspnea, cough, fevers, chills, nausea, vomiting, anosmia, abd pain, chest pain, palps, syncope, diarrhea, constipation, numbness/weakness during his hospitalization. His oxygen was weaned as tolerated, but ultimately, he required set up of home oxygen on discharge. Patient was sent home with instructions to follow up with PCP and pulmonary medicine as required. I spent 35 minutes preparing this discharge. Assessment: Gen: awake, alert HEENT: normocephalic, atraumatic, good hearing acuity, moist mucous membranes Resp: good air exchange, no accessory muscle use CVS: good distal perfusion x 4, RRR, no murmurs, clicks, gallops GI: soft, NTTP, ND : no SPT, no CVAT, tate catheter not present MSK: no pitting edema, no clubbing Neuro: non-focal, no sensory deficits, appropriate tone Psych: cooperative, euthymic mood Patient Condition at Discharge: Good Plan - Discharge Summary Discharge Rx Participant: No New Discharge Prescriptions: Continue Aspirin [Adult Low Dose Aspirin EC] 81 mg PO DAILY #14 tablet. dexAMETHasone [Hexadrol] 6 mg PO DAILY #27 tab Zinc Sulfate [Orazinc] 220 mg PO DAILY #14 cap Albuterol Inhaler [Ventolin Hfa Inhaler] 2 puff INHALATION RT-Q6H PRN #1 inhaler PRN Reason: Shortness Of Breath Or Wheezing Cholecalciferol [Vitamin D3] 400 unit PO DAILY #14 tab Famotidine [Pepcid] 40 mg PO HS #14 tab Discharge Medication List Albuterol Inhaler [Ventolin Hfa Inhaler] 2 puff INHALATION RT-Q6H PRN #1 inhaler 05/03/20 [Rx] Aspirin [Adult Low Dose Aspirin EC] 81 mg PO DAILY #14 tablet. 05/03/20 [Rx] Cholecalciferol [Vitamin D3] 400 unit PO DAILY #14 tab 05/03/20 [Rx] Famotidine [Pepcid] 40 mg PO HS #14 tab 05/03/20 [Rx] Zinc Sulfate [Orazinc] 220 mg PO DAILY #14 cap 05/03/20 [Rx] dexAMETHasone [Hexadrol] 6 mg PO DAILY #27 tab 05/03/20 [Rx] Follow up Appointment(s)/Referral(s): Sheryl Pinedo MD [Primary Care Provider] - 1-2 days [facility] [NON-STAFF] - As Needed (This is the supplier of your home oxygen. )
[2020-05-14 14:30] VITALS: BP 127/77; RESP 17; TEMP 97.5
== END 2020-05-14 16:25 | disposition home or self-care (01) | DRG 871 ==
LOC: EC 08:49 → 6NMEDSUR 11:18 → 4SSUR 05-11 16:30
PROVIDERS: ADMIT Internal Medicine; ATTEND Internal Medicine
DX: A41.89 Other specified sepsis (principal); J12.89 Other viral pneumonia; U07.1 COVID-19; J96.01 Acute respiratory failure with hypoxia; J44.0 Chronic obstructive pulmonary disease with (acute) lower respiratory infection; J43.9 Emphysema, unspecified; J84.10 Pulmonary fibrosis, unspecified; Z66 Do not resuscitate; E86.0 Dehydration; D75.1 Secondary polycythemia; M19.041 Primary osteoarthritis, right hand; M19.042 Primary osteoarthritis, left hand; Z87.891 Personal history of nicotine dependence; Z86.19 Personal history of other infectious and parasitic diseases; Z79.01 Long term (current) use of anticoagulants; Z79.82 Long term (current) use of aspirin; Z79.899 Other long term (current) drug therapy; Z98.890 Other specified postprocedural states; Z80.9 Family history of malignant neoplasm, unspecified
CPT/HCPCS: 36415; 36600; 71045; 80048; 80053; 82728; 82805; 83605; 83615; 83735; 84145; 85025; 85379; 85610; 85730; 86140; 87040; 93005; 94640; 94760; 96365; 96367; 96372; 96376; 99285